=== PATIENT | female | born 1990 | race Caucasian/White ===

== ENCOUNTER → 2024-12-05 | Outpatient (CLI) | payer OTHER, SELFPAY | END | disposition home or self-care (01) | LOC: LAB 09:18 | PROVIDERS: PCP Family Medicine; Referring Provider Family Medicine; Visit Provider Family Medicine | DX: E03.9 Hypothyroidism, unspecified (principal) | CPT/HCPCS: 36415; 84439; 84443 ==

== ENCOUNTER 2025-01-08 06:43 | Outpatient (CLI) | payer OTHER, SELFPAY ==
--- OUTSIDE RECORDS SUMMARY | 2025-01-08 06:46 | XMS RPT_ITS | CCD ---
Author Organization [facility] [place] CliniSynd Care Team Providers Care Data Processing Operator Name Role Phone DELCIAPPO, ALIVIA I Unavailable Unavailable DELCIAPPO, ALIVIA I Unavailable Unavailable NO REFERRING DR Unavailable Unavailable KASSANDRA COATES JR Unavailable Unavailable KASSANDRA COATES JR Unavailable Unavailable DELCIAPPO, ALIVIA I Unavailable Unavailable DELCIAPPO, ALIVIA I Unavailable Unavailable DELCIAPPO, ALIVIA I Unavailable Unavailable NO REFERRING DR Unavailable Unavailable IMCA Unavailable Unavailable IMCA Unavailable Unavailable NO REFERRING Unavailable Unavailable CLAUS STEWART Unavailable Unavailable CHUY MARCIAL Unavailable Unavailable IMCA Unavailable Unavailable NICOL ROSE L Unavailable Unavailable ALF ROSEFER L Unavailable Unavailable DEL CIAPPO, ALIVIA L (NM) Unavailable Unavail able DEL CIAPPO, ALIVIA L (NM) Unavailable Unavail able DEL CIAPHUCO, ALIVIA L (NM) Unavailable Unavail able KASSANDRA COATES JR Unavailable Unavailable KASSANDRA COATES JR W Unavailable Unavailable DEL CIAPPO, ALIVIA L (NM) Unavailable Unavail able DEL CIAPPO, ALIVIA L (NM) Unavailable Unavail able CLAUS STEWART Unavailable Unavailable JANAY GARCIA Unavailable Unavailable Loewit TECHNICAL ACCOUNT REPRESENTATIVE-GRAIN THRESHER, [place] Unavailable Unavailabl e Benjy TECHNICAL ACCOUNT REPRESENTATIVE-CNM, Alice Unavailable Unava ilable Unknown, Referring Provider Unavailable Unav ailable Delia Harrington PA-C Primary Care Provider Delia Harrington PA-C Primary Care Provider Delia Harrington PA-C Primary Care Provider [phone] DELIA HARRINGTON Primary Care Unavailable DELIA HARRINGTON Primary Care Unavailable Jorge Angulo Referring Unavailable Jorge Angulo Attending Unavailable Jorge Angulo Primary Care Unavailable RILEY COBIAN Admitting Unavailable RILEY COBIAN Attending Unavailable RILEY COBIAN Primary Care Unavailable Jorge Angulo Primary Care Unavailable Jorge Angulo Referring Unavailable Jorge Angulo Attending Unavailable Jorge Angulo Primary Care Unavailable Assessment, Health Risk Referring Unavaila ble Assessment, Health Risk Attending Unavaila ble Medications Current Medications Medication Drug Class(es) Dates Sig (Normalized) Sig (Original) Ethinyl Estradiol / Levonorgestrel (7 sources) Progestin, Estrogen, Progestin-containi ng Intrauterine Device Start: 11-25-2023 take 1 tablet by mouth once daily levonorgestrel-ethi nyl estradiol (LEVORA-28) 0.15-0.03 mg per tab Indications: Surveillance for control, oral contraceptives Take 1 tablet by mouth once daily. 84 tablet 5 11/25/2023 Active Start: 11-05-2022 End: 11-25-2023 take 1 tablet by mouth once daily levonorgestrel-ethinyl estradiol (LEVORA-28) 0.15-0.03 mg per tab Indications: Surveillance for control, oral contraceptives Take 1 tablet by mouth once daily. 84 tablet 5 11/05/2022 11/25/2023 Discontinued Start: 11-05-2022 take 1 tablet by rigoberto th once daily levonorgestrel-ethinyl estradiol (LEVORA-28) 0.15-0.03 mg per tab Indications: Surveillance for control, oral contraceptives Take 1 tablet by mouth once daily. 84 tablet 5 11/05/2022 Active Start: 10-26-2022 End: 11-05-2022 take 1 tablet by mouth once daily levonorgestrel-ethinyl estradiol (LEVORA-28) 0.15-0.03 mg per tab Indications: Surveillance for control, oral contraceptives Take 1 tablet by mouth once daily. 84 tablet 0 10/26/2022 11/05/2022 Discontinued Start: 10-26-2022 take 1 tablet by rigoberto th once daily levonorgestrel-ethinyl estradiol (LEVORA-28) 0.15-0.03 mg per tab Indications: Surveillance for control, oral contraceptives Take 1 tablet by mouth once daily. 84 tablet 0 10/26/2022 Active Start: 10-30-2021 take 1 tablet by rigoberto th once daily levonorgestrel-ethinyl estradiol (LEVORA-28) 0.15-0.03 mg per tab Indications: Surveillance for control, oral contraceptives Take 1 tablet by mouth once daily. 84 tablet 3 10/30/2021 Active Comment on above: Take 1 tablet by rigoberto th once daily. levothyroxine sodium 0.05 mg oral tablet (6 sources) l-Thyroxine Start: 2 take 1 tablet by mouth once daily levothyroxine (SYNTHROID) 50 mcg tablet Indications: Acquired hypothyroidism Take 1 tablet by mouth once daily 90 tablet 1 02/16/2022 Active Start: 06-10-2021 take 1 tablet by rigoberto th once daily levothyroxine (SYNTHROID) 50 mcg tablet Indications: Acquired hypothyroidism Take 1 tablet by mouth once daily. 90 tablet 3 06/10/2021 Active Start: 01-25-2020 take 1 tablet by rigoberto th once daily Levothyroxine Sodium 50 MCG Oral Tablet TAKE 1 TABLET DAILY DIRECTED. Quantity: 90 Refills: 3 Benjy Alice SOTO Start : 25-Jan-2020 Active Comment on above: Take 1 tablet by rigoberto th once daily. Take 1 tablet by rigoberto th once daily Norethindrone (2 sources) Start: 07-29-2020 End: 10-30-2021 STEFFANIE 0.35 mg tablet Start: 06-05-2019 End: 06-27-2021 take 1 tablet by mouth once daily Steffanie 0.35 MG Oral Tablet TAKE 1 TABLET DAILY. Quantity: 3 Refills: 3 Fawadcatherine Aura DEAN Start : 05-Jun-2019 End : 26-Jun-2021 Active 28 Tablet Pack VIT 91/IRON/FOLIC/D CAMARA ( + DHA ORAL) (4 sources) End: 11-05-2022 VIT 91/IRON/FOLIC/D CAMARA ( + DHA ORAL) Take by mouth. 0 11/05/2022 Discontinued VIT 91/ IRON/FOLIC/DHA ( + DHA ORAL) Take by mouth. 0 Active Comment on above: Take by mouth. Completed/Discontinued Medications Medication Drug Class(es) Dates Sig (Normalized) Sig (Original) cholecalciferol 0.025 mg oral capsule (1 source) Vitamin D Vitamin D (Cholecalciferol) 25 MCG (1000 UT) Oral Capsule Refills: 0 Active Pre-James Formula Oral Tablet (1 source) Pre- Formul a Oral Tablet Refills: 0 Active Problems Active Problems Problem Classification Problem Date Documented Date Episodic/Chronic Contraceptive and procreative management (6 sources) Patient encounter status; Translations: [Unspecified contraceptive management] Onset: 07-27-2017 Resolved: 02-15-2018 Episodic Disorders of lipid metabolism (2 sources) Hyperlipidemia, unspecified; Translations: [Hyperlipidemia, unspecified] Onset: 12-07-2024 Chronic Menstrual disorders (7 sources) Secondary amenorrhea; Translations: [Amenorrhea, unspecified] Onset: 01-25-2017 Chronic Normal and/or delivery (2 sources) Encounter for full-term uncomplicated delivery; Translations: [ finding] Onset: 09-01-2017 Episodic Other complications of (1 source) Anemia complicating , third trimester; Translations: [Anemia complicating , third trimester] Onset: 07-26-2017 Chronic Other screening for suspected conditions (not mental disorders or infectious disease) (2 sources) Cancer cervix screening status; Translations: [Screening for malignant neoplasms of cervix] Episodic Thyroid disorders (11 sources) Hypothyroidism, unspecified; Translations: [Hypothyroidism] Onset: 01-27-2017 02-10-2017 Chronic Unclassified (1 source) Weeks of gestation of not specified; Translations: [WEEKS GESTATION PREGNANC] Onset: 01-27-2017 Unclassified (1 source) Unknown / UNK(Unknown) Onset: 09-04-2017 Past or Other Problems Problem Classification Problem Date Documented Date Episodic/Chronic Hypertension complicating ; childbirth and the puerperium (1 source) -induced hypertension; Translations: [Gestational [-induced] hypertension without significant proteinuria, unspecified trimester] Onset: 09-01-2017 Resolved: 11-05-2020 11-05-2020 Episodic Other complications of (5 sources) Endocrine, nutritional and metabolic diseases complicating , first trimester; Translations: [Endocrine, nutritional and metabolic diseases complicating , third trimester] Onset: 01-27-2017 Episodic Other complications of (1 source) RhD negative; Translations: [Other specified related conditions, unspecified trimester] Onset: 02-10-2017 Resolved: 09-04-2017 09-04-2017 Episodic Other complications of (1 source) Hypothyroidism in ; Translations: [Endocrine, nutritional and metabolic diseases complicating , unspecified trimester] Onset: 08-24-2017 Resolved: 02-15-2018 02-15-2018 Episodic Unclassified (1 source) Other specified health status; Translations: [OTHER SPECIFIED HEALTH S] Onset: 01-27-2017 Episodic Unclassified (1 source) Supervision of other high risk pregnancies, unspecified trimester Onset: 06-22-2017 NEGATED: Highlighted row has not occurred!Residual codes; unclassified (3 sources) Disease Episodic Results Test Name Value Interpretation Reference Range Facility THIN PREP (Anant) PAP WITH HP V REFLEXon 12-14-2024 THIN PREP (Mullen) PAP WITH HPV REFLEX Normal [facility] Comment on above: Result Comment: _THI N PREP (Adult) PAP w HPV REFLEX_ Performed By: #### 2 [id number] #### [facility],[address] [place] [id number] CBC, Employeeon 12-05-2024 Absolute Lymph 1.68 X10 3/uL Normal 0.83-4.51 [facility] Comment on above: Performed By: #### L 100.0200, L500.2900, L400.0100 #### [facility] [address] [place], [address] Absolute Neut 2.9 X10 3/uL Normal 2.0-7.7 [facility] Comment on above: Performed By: #### L 100.0200, L500.2900, L400.0100 #### [facility] [address] [place], [address] Basophils/100 WBC (Bld) 1.3 % High 0-1 [facility] Comment on above: Performed By: #### L 100.0200, L500.2900, L400.0100 #### [facility] [address] [place], [address] Eosinophils/100 WBC (Bld) 2.5 % Normal 0-5 [facility] Comment on above: Performed By: #### L 100.0200, L500.2900, L400.0100 #### [facility] [address] [place], [address] Erythrocyte distribution width (RBC) [Ratio] 11.9 % Normal 11.6-14.6 [facility] Comment on above: Performed By: #### L 100.0200, L500.2900, L400.0100 #### [facility] [address] [place], [address] Hematocrit (Bld) [Volume fraction] 42.3 % Normal 37-47 [facility] Comment on above: Performed By: #### L 100.0200, L500.2900, L400.0100 #### [facility] [address] [place], [address] Hemoglobin (Bld) [Mass/Vol] 14.2 g/dL Normal 12.0-15.0 [facility] Comment on above: Performed By: #### L 100.0200, L500.2900, L400.0100 #### [facility] [address] [place], [address] Lymphocytes/100 WBC (Bld) 32.1 % Normal 19-41 [facility] Comment on above: Performed By: #### L 100.0200, L500.2900, L400.0100 #### [facility] [address] [place], [address] MCH (RBC) [Entitic mass] 31.4 pg Normal 27.0-32.0 [facility] Comment on above: Performed By: #### L 100.0200, L500.2900, L400.0100 #### [facility] [address] [place], [address] MCHC (RBC) [Mass/Vol] 33.6 g/dL Normal 32-36 [facility] Comment on above: Performed By: #### L 100.0200, L500.2900, L400.0100 #### [facility] [address] [place], [address] MCV (RBC) [Entitic vol] 93.6 fL Normal 81-99 [facility] Comment on above: Performed By: #### L 100.0200, L500.2900, L400.0100 #### [facility] [address] [place], [address] Monocytes/100 WBC (Bld) 8.2 % Normal 0-10 [facility] Comment on above: Performed By: #### L 100.0200, L500.2900, L400.0100 #### [facility] [address] [place], [address] Neutrophils/100 WBC (Bld) 55.7 % Normal 47-70 [facility] Comment on above: Performed By: #### L 100.0200, L500.2900, L400.0100 #### [facility] [address] [place], [address] NRBC # 0.00 10 3/uL Normal 0-5 [facility] Comment on above: Performed By: #### L 100.0200, L500.2900, L400.0100 #### [facility] [address] [place], [address] Nucleated RBC (Bld) [#/Vol] 0 10*3/uL Normal 0-5 [facility] Comment on above: Performed By: #### L 100.0200, L500.2900, L400.0100 #### [facility] [address] [place], [address] Platelet mean volume (Bld) [Entitic vol] 9.7 fL Normal 6.2-12.0 [facility] Comment on above: Performed By: #### L 100.0200, L500.2900, L400.0100 #### [facility] [address] [place], [address] Platelets (Bld) [#/Vol] 229 10*3/uL Normal 150-450 [facility] Comment on above: Performed By: #### L 100.0200, L500.2900, L400.0100 #### [facility] [address] [place], [address] RBC (Bld) [#/Vol] 4.52 10*6/uL Normal 4.2-5.4 [facility] Comment on above: Performed By: #### L 100.0200, L500.2900, L400.0100 #### [facility] [address] [place], [address] RDW SD 41.0 fl Normal 35.1-43.9 [facility] Comment on above: Performed By: #### L 100.0200, L500.2900, L400.0100 #### [facility] [address] [place], [address] WBC (Bld) [#/Vol] 5.2 10*3/uL Normal 4.4-11.0 [facility] Comment on above: Performed By: #### L 100.0200, L500.2900, L400.0100 #### [facility] [address] [place], [address] Employee Profileon Cholesterol in LDL [Mass/Vol] 174 mg/dL High 0-130 [facility] Comment on above: Performed By: #### L 100.0200, L500.2900, L400.0100 #### [facility] [address] [place], [address] T4 Free Directon 12-05-2024 T4 FREE DIRECT 1.20 ng/dL Normal 0.76-1.46 [facility] Comment on above: Order Comment: Order Date: 12/04/24 Order Info: [id number] - LIPID Order Info: [id number] - TSH Order Info: [id number] - T4F Performed By: #### L 501.9520, L506.0400 #### [facility] [address] [place], [address] Thyroid Stim Hormone (TSH)on 12-05-2024 TSH 1.970 uIU/mL Normal 0.300-4.200 [facility] Comment on above: Order Comment: Order Date: 12/04/24 Order Info: [id number] - LIPID Order Info: [id number] - TSH Order Info: [id number] - T4F Performed By: #### L 501.9520, L506.0400 #### [facility] [address] [place], [address] Urinalysis, Employeeon 12-05 BILIRUBIN URINE Negative Normal Negative [facility] Comment on above: Order Comment: Urine , Random Performed By: #### L 100.0200, L500.2900, L400.0100 #### [facility] [address] [place], [address] Clarity (U) Clear Normal Clear [facility] Comment on above: Order Comment: Urine , Random Performed By: #### L 100.0200, L500.2900, L400.0100 #### [facility] [address] [place], [address] Color (U) Straw Normal Yellow [facility] Comment on above: Order Comment: Urine , Random Performed By: #### L 100.0200, L500.2900, L400.0100 #### [facility] [address] [place], [address] GLUCOSE, UR Normal Normal Normal [facility] Comment on above: Order Comment: Urine , Random Performed By: #### L 100.0200, L500.2900, L400.0100 #### [facility] [address] [place], [address] KETONE UR Negative Normal Negative [facility] Comment on above: Order Comment: Urine , Random Performed By: #### L 100.0200, L500.2900, L400.0100 #### [facility] [address] [place], [address] LEUK ESTERASE Negative Normal Negative [facility] Comment on above: Order Comment: Urine , Random Performed By: #### L 100.0200, L500.2900, L400.0100 #### [facility] [address] [place], [address] Nitrite Ql (U) Negative Normal Negative [facility] Comment on above: Order Comment: Urine , Random Performed By: #### L 100.0200, L500.2900, L400.0100 #### [facility] [address] [place], [address] OCCULT BLOOD-UR Negative Normal Negative [facility] Comment on above: Order Comment: Urine , Random Performed By: #### L 100.0200, L500.2900, L400.0100 #### [facility] [address] [place], [address] pH UR 7.0 Normal 5.0 - 8.0 [facility] Comment on above: Order Comment: Urine , Random Performed By: #### L 100.0200, L500.2900, L400.0100 #### [facility] [address] [place], [address] PROT DIPSTX Negative Normal Negative [facility] Comment on above: Order Comment: Urine , Random Performed By: #### L 100.0200, L500.2900, L400.0100 #### [facility] [address] [place], [address] SP.GR. DIPSTX 1.005 Normal 1.002-1.030 [facility] Comment on above: Order Comment: Urine , Random Performed By: #### L 100.0200, L500.2900, L400.0100 #### [facility] [address] [place], [address] UROBILI Normal Normal Normal [facility] Comment on above: Order Comment: Urine , Random Performed By: #### L 100.0200, L500.2900, L400.0100 #### [facility] [address] [place], [address] T4 Free SerPl-mCncon 024 Free T4 [Mass/Vol] 1.3 ng/dL Normal 0.9-1.7 [facility] Comment on above: Order Comment: Speci men Type: BLOOD SPECIMEN Ordering Facility: [facility] Address: [address] [place] [address] Performed By: #### 3 024-7, 3016-3 #### [facility] CLIA [id number] [address] [place] [address] [place] TSH SerPl-aCncon 05-28-2024 TSH Qn 2.010 m[IU]/L Normal 0.270-4.200 [facility] Comment on above: Order Comment: Speci men Type: BLOOD SPECIMEN Ordering Facility: [facility] Address: [address] [place] [address] Result Comment: If t he patient is , TSH reference range varies by gestational period: First Trimester (weeks 9-12): 0.180-2.990 mIU/L Second Trimester: 0.110-3.980 mIU/L Third Trimester: 0.480-4.710 mIU/L Gregg Martinez et al. A Practical Approach for the Verifications and Determination of Site- and Trimester-Specific Reference Intervals for Thyroid Function tests in . Thyroid, 2019:29:3:412-420. Juanjo Rodríguez, et al. 2017 Guidelines of the [place] Thyroid Association for the Diagnosis and Management of Thyroid Disease during and the . Thyroid, 2017:27:3:315-389. Performed By: #### 3 024-7, 3016-3 #### [facility] CLIA [id number] [address] [place] [address] [place] SCALE MECHANIC - Office Visiton SCALE MECHANIC - Office Visit Diagnoses/Problems Assessed Hypothyroidism, unspecified type (244.9) (E03.9) Screening for cervical cancer (V76.2) (Z12.4) Contraception management (V25.9) (Z30.9) Well woman exam with routine gynecological exam (V72.31) (Z01.419) Orders Renew: Steffanie 0.35 MG Oral Tablet; TAKE 1 TABLET DAILY Continue: Levothyroxine Sodium 50 MCG Oral Tablet; TAKE 1 TABLET DAILY DIRECTED TSH WITH REFLEX TO FREE T4 IF ABNORMAL; Status:Active; Requested for:25Jul2020; PAP PIZZA MAKER, Cytology; Status:In Progress - Specimen/Data Collected,Retrospective By Protocol Authorization; Done: 25Jul2020 Last Menstrual Period (LMP): : 06/17/2020 PAP - Site : CERVICAL Cytology Order : ThinPrep PAP, Screening, HPV All Interp - Include Genotyping Continue: Pre- Formula Oral Tablet Patient Discussion/Summary Thanks for coming to see me today- I enjoyed our visit! Please feel free to contact me anytime through the patient portal or by calling the office at [phone]. ASSESSMENT: Shania is a very pleasant patient who presents for well woman exam. She is doing well. PLAN: 1. Exam as charted. 2. PAP and HPV 3. Noris refilled x 12 months. 4. TSH with reflux T4. 5. Follow-up annually for well woman exam; sooner if needed. Instructions to patient: Healthy diet with high fiber. Multivitamins AND calcium. Regular exercise for 30 to 45 min., 5 to 7 days a week. Encouraged self breast exams. We will call with any abnormal lab results. These results will also be available on the patient portal. Canones refilled. Follow-up annually for well woman exam; sooner if needed. Chief Complaint Patient here for annual exam and PAP. No concerns at this time. Aoc Director Combat Plans Officer Declined Nereida Garcia CMA History of Present IllnessCC: Here for well woman exam. HPI: presents for annual well woman exam. She has the following concerns; none. PIZZA MAKER HISTORY: Menstrual cycles are infrequent while lactating. Only had one cycle, last month, since giving 15 months ago. Declines STD testing PAP history- No history of abnormal PAP testing. Next PAP due today. Health Maintenance: Diet and exercise- BMI 20. She follows with a PCP. She feels safe at home. Medical history- per list, reviewed with patient Surgical history- per list, reviewed with patient Family history- No family history of breast, ovarian, or uterine cancer. No family history of colon cancer or osteoporosis. Social History: Denies smoking, drug or alcohol abuse. Reviewed current allergies and medication list. Review of Systems Constitutional: no fever and no chills. Cardiovascular: no chest pain. Respiratory: no shortness of breath. Gastrointestinal: no nausea, no abdominal pain and no constipation Genitourinary: no dysuria, no urinary incontinence, no vaginal dryness, no pelvic pain and no vaginal discharge. Neurological: no headache. Psychiatric: no anxiety and no depression. Active Problems Problems Contraception management (V25.9) (Z30.9) Hypothyroidism, unspecified type (244.9) (E03.9) Normal course (V24.2) (Z39.2) Surgical History Problems History of Tonsillectomy with adenoidectomy Family History Mother Family history of hypertension (V17.49) (Z82.49) Social History Problems Employed Exercises regularly Feels safe at home Never a smoker No illicit drug use Occasional alcohol use Sexually active Unemployed (V62.0) (Z56.0) Allergies Medication No Known Drug Allergies Recorded By: Leanna Nevarez; 05/31/2019 8:21:08 AM Current Meds Medication NameInstruction Steffanie 0.35 MG Oral TabletTAKE 1 TABLET DAILY. Levothyroxine Sodium 50 MCG Oral TabletTAKE 1 TABLET DAILY DIRECTED. Pre-James Formula Oral Tablet Vitamin D (Cholecalciferol) 25 MCG (1000 UT) Oral Capsule Vitals Vital Signs Recorded: 25Jul2020 02:11PM [id number] Height5 ft 5 in [id number] lb BMI [id number] BSA Calculated1.6 [id number] Physical Exam Constitutional: Alert and in no acute distress. Well developed, well nourished. Neck: No neck asymmetry. Supple. Thyroid not enlarged and there were no palpable thyroid nodules. Cardiovascular: Heart rate and rhythm were normal, normal S1 and S2, no gallops, and no murmurs. Pulmonary: No respiratory distress. Clear bilateral breath sounds. Chest: Breasts: Normal appearance, no nipple discharge and no skin changes. Palpation of breasts and axillae: No palpable mass and no axillary lymphadenopathy. Abdomen: Soft nontender; no abdominal mass palpated. Normal bowel sounds. No organomegaly. Genitourinary: - External genitalia: Normal. - Palpation of lymph nodes in groin: No inguinal lymphadenopathy. - Bartholin's Urethral and Skenes Glands: Normal. - Urethra: Normal. -Bladder: Normal on palpation. - Vagina: Normal. - Cervix: Normal. - Uterus: Normal. Right Adnexa/parametria: Normal. Left Adnexa/parametria: Normal. - Perianal Area: Normal. Skin: Normal skin color and pigmentation, normal skin turgor, and no rash Psychiatric: Alert and oriented x 3. Affect normal to patient baseline. Mood: Appropriate. Signatures Electronically signed by : DIANNE Kurtz; Jul 25 2020 2:56PM EST (Author) Normal Screen [facility] Date of Procedure: 07/25/2020 Pathologist: [facility], Cytology Date Reported: 08/07/2020 Date Received: 07/28/2020 Submitting Physician: AURA SPAIN CNP FINAL CYTOLOGICAL INTERPRETATION A. THINPREP PAP Cervical / Endocervical: Specimen adequacy: SATISFACTORY FOR EVALUATION. Quality Indicator: Endocervical/transformation zone component is present. General Categorization: NEGATIVE FOR INTRAEPITHELIAL LESION OR MALIGNANCY. HIGH RISK HPV TEST RESULT: HPV GENOTYPE 16 NEGATIVE HPV GENOTYPE 18 NEGATIVE HPV GENOTYPE OTHER NEGATIVE Reference Range: Negative Slide(s) initially screened by a Elementary Math Tutor at [facility], [address] [place] [id number] Testing for high-risk (HR) type of human papilloma virus (HPV) is performed by the Jacklyn junior HPV Test. The junior HPV Test is a qualitative polymerase chain reaction that amplifies DNA of HPV16, HPV18 and 12 other high-risk HPV types (31, 33, 35, 39, 45, 51, 52, 56, 58, 59, 66, and 68) associated with cervical cancer and its precursor lesions. A positive result indicates the presence of HPV DNA due to one or more of the 14 genotypes: 16, 18, 31, 33, 35, 39, 45, 51, 52, 56, 58, 59, 66, and 68. Negative results indicate HPV DNA concentrations are undetectable or below the pre-set threshold for detection. False negative results may be associated with unoptimized sampling. A negative HR HPV result does not exclude the possibility of future cytologic HSIL or underlying CIN2-3 or cancer. This test is approved for cervical specimens by the US Food and Drug Administration. Results of this test should be interpreted in conjunction with the patient?s Pap test results. Please refer to ASCCP current guidelines for the use of HPV DNA testing, result interpretation, and patient management. The performance of this test was verified by the [facility] at [facility]. The lab is certified under the Clinical Laboratory Amendments of 1988 (CLIA 88) as qualified to perform high complexity clinical laboratory testing. Electronically Signed Out By [facility], Cytology//LSM By the signature on this report, the individual or group listed as making the Final Interpretation/Diagnosis certifies that they have reviewed this case. Educational Note: Cervical cytology is a screening procedure primarily for squamous cancers and precursors and has associated false-negative and false-positive results as evidenced by published data. Your patient?s test should be interpreted in this context, together with patient?s history and clinical findings. Regular sampling and follow-up of unexplained clinical signs and symptoms are recommended to minimize false negative results. Clinical History Date of Last Menstrual Period: 06/17/2020 Other Clinical Conditions: HPV Test for All Interpretations - Include HPV Genotype Clinical Diagnosis History: Screening for cervical cancer - (Z12.4) Source of Specimen A: THINPREP PAP Cervical / Endocervical [facility] Department of Pathology [address] [place] [address] [facility] TSH WITH REFLEX TO FREE T4 I F ABNORMALon 07-25-2020 TSH Qn 3.84 m[IU]/L Normal 0.44 - 3.98 [facility] Comment on above: Result Comment: TSH testing is performed using different testing methodology at [facility] than at other [facility]. Direct result comparisons should only be made within the same method. Performed By: #### T HYDS #### [facility] [address] [place] [address] CBCon 04-10-2019 Erythrocyte distribution width (RBC) [Ratio] 12.1 % Normal 11.4-16.0 [facility] Hematocrit (Bld) [Volume fraction] 41.9 % Normal 34.7-44.9 [facility] Hemoglobin (Bld) [Mass/Vol] 14.6 g/dL Normal 11.3-15.6 [facility] MCH (RBC) [Entitic mass] 34.1 pg High 26.5-33.0 [facility] MCHC (RBC) [Mass/Vol] 34.8 g/dL Normal 32.6-36.0 [facility] MCV (RBC) [Entitic vol] 98.1 fL Normal 80.0-100.0 [facility] Mean Plt Vol 9.1 fL Normal 7.2-10.3 [facility] Platelets (Bld) [#/Vol] 192 10*3/uL Normal 144-400 [facility] RBC (Bld) [#/Vol] 4.27 x10E12/L Normal 3.78-5.45 [facility] WBC (Bld) [#/Vol] 9.6 10*3/uL Normal 3.5-11.5 [facility] Obstetric Note-HOP/Admit wit h History and Physicalon 04-10-2019 Obstetric Note-HOP/Admit with History and Physical Reasons for Admission: Obstetric Visit: Visit TypeHOP/Admit with History and Physical REASON FOR ADMISSION: Reason for [id number] y/o @ 41.6 weeks gestation admitted to [facility] for post dates induction of labor. Having occasional contractions, denies LOF, VB, endorses good movement. VE 2/70/-3 RISK FOR HEMORRHAGE: Risk Factors for Hemorrhage: none of these exist OB Evaluation: OBSTETRICS STATUS: : 2 (1) Para: 1 (1) : 0 (1) Livin (1) : 0 (1) Full Term: 1 (1) Dating: Dating: [id number](1) Weeks Gestation (weeks . days)41.6 Weeks . Days(1) LMP [id number](1) Working Estimated Date of Delivery: Working SKYLAR from [facility] Documentation: Working [id number](1) History of Present Illness: HPI COMPLAINTS: Chief Complaintinduction of labor Painnone Vaginal Bleedingnone Vaginal Dischargenone Fevernone Movementsnormal Weight Gainnormal Past Medical, Surgical and Family History: Past Medical History: Past Medical History: noncontributory Endocrine/Metabolic: HYPOTHYROIDISM(1) Additional Past Medical History: history syncope(1) Past Surgical History: Eye/ENT: ADENOIDECTOMY(1) FAMILY HISTORY: Family History: positive (1) Conditions: hypertension, hyperlipidemia(1) Family Member with Hypertension: mother(1) Family Member with Hyperlipidemia: father, mother(1) Social History: MATERNAL GENERAL INFORMATION: Source of Informationpatient(1) Arrived Frommarsing(1) Mode of Arrivalambulatory(1) Patient Belongingsclothing/shoes; electronics; jewelry; ring,earrings; suitcase/bag; glasses; left contact; right contact(1) LIVING ENVIRONMENT: Lives Withspouse; dependent child(ab)(2) Living Arrangementshouse(2) ACTIVITY/EXERCISE/SELF CARE: Equipment Currently Used at [employer] (1) TRAVEL/EXPOSURE: Have you Traveled Recently?no (1) Have you been Exposed to any of the Following?mosquitoes(1) PET HISTORY: Pet Historynone(2) Substance Use: SUBSTANCE USE: Smoking Statusnever smoker(1) Caffeine Use Statusdoes not use caffeine (1) Alcohol Use Statusalcohol never used (1) Street Drug/Inhalant/Medication Use Statusstreet drug/inhalants/medication never used (1) Exposure to Second Hand Smokenone (1) ALLERGIES: Allergies: No Known Allergies: Active HEALTH CALIBRATION TECHNICIAN: Charted Data: EventVaccineAction Date/TimeComment [id number] 11:03 Product Given: BOOSTRIX ([employer]) [id number] 11:01 Product Given: Rho(D)Full (Ortho-Clinical Diagnostics) OUTPATIENT MEDICATION PROFILE: * Patient Currently Takes Medications as of 02-Apr-2019 11:41 documented in Structured Notes MedicationInstructionsStatusSta rt Date levothyroxine 50 mcg (0.05 mg) oral tablet1 tab(s) orally once a day Active 13-Mar-2019 levothyroxine 50 mcg (0.05 mg) oral tablet1 tab(s) orally once a dayActive Multivitamins oral tabletActive magnesiumActive REVIEW OF SYSTEMS: General: NEGATIVE: chills, fever Breast: NEGATIVE: tenderness Respiratory: NEGATIVE: cough, dyspnea, wheezing Cardiovascular: NEGATIVE: chest pain Gastrointestinal: NEGATIVE: abdominal pain, constipation, diarrhea, nausea, vomiting Genitourinary: NEGATIVE: dysuria, urinary frequency, urinary hesitance, urinary incontinence Gynecological: NEGATIVE: vaginal discharge, vaginal pruritus Neuro: NEGATIVE: dizziness, headache, numbness, weakness Psych: NEGATIVE: depression VITAL SIGNS: 2. Vital Signs: 10-Apr-2019 08:20 Temp (degrees F) (degrees F)98 Temp (degrees C) (degrees C)36.6 Temperature Site Sitetemporal Heart Rate (beats/min) beats/min86 BP Systolic (mm Hg) [id number] BP Diastolic (mm Hg) Diastolic (mm Hg)91 Respiration (breaths/min) Respiration (breaths/min)16 Height (ft) Height (ft)5 Height (remainder in inches) Height (in)5 Height (cm) Height (cm)165.1 Weight (lbs) Weight (lbs)155 Weight (kg) Weight (kg)70.3 Weight Methodstanding scale BSA (m2)1.8 BMI (kg/m2) BMI (kg/m2)25.7 Physical Exam: PHYSICAL EXAMINATION: General Appearance CommentsWell developed, well nourished and no acute distress. Skin CommentsSkin warm and dry, no rash. Neck and Thyroid CommentsNeck supple, no thyromegaly, no masses. Breast and Axilla CommentsAppropriate for Respiratory CommentsNormal respiratory effort, clear to auscultation. Cardiovascular CommentsRegular sinus rhythm, S1 normal, S2 normal. No murmur, rub or gallop. Gastrointestinal CommentsGravid abdomen, soft and non-tender. Musculoskeletal CommentsNormal gait and station. Joints and limbs grossly normal. Neurological CommentsOriented to person, place and time. Motor strength grossly normal. Psychiatric CommentsNormal mood and affect. Obstetric Exam: Obstetric: Shape of Abdomen: round Lie: longitudinal Presentation: cephalic Dilatation (cm): 2 Effacement %: 70% Station: -3 Frequency of Contractions: irregular Duration of Contractions: occ Cervix Position: posterior Consistency of Cervix: soft Ruiz Score: 5 Membranes Status: intact Estimated Weight: 8.5# Monitoring: NONSTRESS TEST: Non Stress Test - Parameters Assessedfetal heart rate, uterine activity FHR Variabilitymoderate FHR Patternacceleration Uterine Activity Assessmentoccasion contraction Non-StressTest Interpretationreactive Results: LABS AND MICRO: General Hematology: 30-Mar-2019 11:37, Complete Blood Count Hemoglobin: 14.1, [11.3 - 15.6 g/dL] Hematocrit: 41.3, [34.7 - 44.9 %] Infectious Diseases + Serology: 10-Aug-2018 14:01, Hep Bs Ag PN Hep B Surf Ag: [Nonreactiv], Nonreactive 10-Aug-2018 14:01, HIV Ag/Ab HIV Ag/Ab: [Nonreactiv], Nonreactive 10-Aug-2018 14:01, RPR Qual PN RPR: NON REAC, [NON REAC] General Microbiology: 02-Mar-2019 13:36, Strep B Molecular Source_: V/R Final Report_: Specimen negative for Group B Streptococcus by DNA amplification. General Blood Bank: 10-Aug-2018 14:01, Antibody Screen Antibody Screen : Neg 10-Aug-2018 14:01, Blood Type Blood Type : A NEG PROBLEM / ASSESSMENT PLAN: Problem 1: 28 y/o @ 41.6 weeks Problem 2: Cat I FHR tracing Problem 3: Induction of labor Assessment/Plan 3: Admit to [facility] with routine orders and labs Continuous monitoring Discussed IOL options including AROM, pitocin, and breast pump Patient would like to attempt to stimulate labor on her own using pump. Discussed trying this x 1 hour and then moving to pitocin, pt in agreement Dr. Campbell aware of admission and plan of care Reexamine as clinically indicated Anticipate Problem 4: hypothyroidism Assessment/Plan 4: Continue synthroid TSH Electronic Signatures: Alice Burleson (TECHNICAL ACCOUNT REPRESENTATIVE-CNM) (Signed 10-Apr-2019 08:56) Entered: Reasons for Admission, OB Evaluation, History of Present Illness, Past Medical, Surgical and Family History, Social History, Substance Use, Allergies, Immunizations, Outpatient Medication Profile, ROS, Physical Exam, Monitoring, Results, Assessment and Plan Authored: Reasons for Admission, OB Evaluation, History of Present Illness, Past Medical, Surgical and Family History, Social History, Substance Use, Allergies, Immunizations, Outpatient Medication Profile, ROS, Vital Signs, Physical Exam, Monitoring, Results, Assessment and Plan Last Updated: 10-Apr-2019 08:56 by Alice Burleson (TECHNICAL ACCOUNT REPRESENTATIVE-CNM) References: 1. Data Referenced From [facility] OB Patient Profile 04/10/2019 08:20 AM 2. Data Referenced From Historical Data, OBGYN/Bee Robber 09/28/2018 04:[address] [facility] Progress Note, Adult-Advance d Practice RNon 04-10-2019 Progress Note, Adult-sales account director SERVICE: ServiceAdvanced Practice Registered Nurse SUBJECTIVE/INTERVAL HISTORY: Subjective/Interval History Patient exam remains the same, proceed with pitocin. Pt in agreement. VITAL SIGNS: 2. Vital Signs: 10-Apr-2019 08:20 Temp (degrees F) (degrees F)98 Temp (degrees C) (degrees C)36.6 Temperature Site Sitetemporal Heart Rate (beats/min) beats/min86 BP Systolic (mm Hg) [id number] BP Diastolic (mm Hg) Diastolic (mm Hg)91 Respiration (breaths/min) Respiration (breaths/min)16 Height (ft) Height (ft)5 Height (remainder in inches) Height (in)5 Height (cm) Height (cm)165.1 Weight (lbs) Weight (lbs)155 Weight (kg) Weight (kg)70.3 Weight Methodstanding scale BSA (m2)1.8 BMI (kg/m2) BMI (kg/m2)25.7 [place] Scale Score(2) patient cooperative, oriented and tranquil Electronic Signatures: Alice Burleson (TECHNICAL ACCOUNT REPRESENTATIVE-CN) (Signed 10-Apr-2019 12:16) Entered: Service, Subjective/Interval History Authored: Service, Subjective/Interval History, Vital Signs Last Updated: 10-Apr-2019 12:16 by Alice Burleson (TECHNICAL ACCOUNT REPRESENTATIVE-CNM) [facility] pRPRon 04-10-2019 Reagvenu Mcnamara RPR Ql (S) NON REAC Normal NON REAC [facility] BUNon 03-30-2019 Urea nitrogen [Mass/Vol] 12 mg/dL Normal 8-26 [facility] CBCon 03-30-2019 Erythrocyte distribution width (RBC) [Ratio] 12.8 % Normal 11.4-16.0 [facility] Hematocrit (Bld) [Volume fraction] 41.3 % Normal 34.7-44.9 [facility] Hemoglobin (Bld) [Mass/Vol] 14.1 g/dL Normal 11.3-15.6 [facility] MCH (RBC) [Entitic mass] 33.8 pg High 26.5-33.0 [facility] MCHC (RBC) [Mass/Vol] 34.2 g/dL Normal 32.6-36.0 [facility] MCV (RBC) [Entitic vol] 98.8 fL Normal 80.0-100.0 [facility] Mean Plt Vol 9.2 fL Normal 7.2-10.3 [facility] Platelets (Bld) [#/Vol] 195 10*3/uL Normal 144-400 [facility] RBC (Bld) [#/Vol] 4.18 x10E12/L Normal 3.78-5.45 [facility] WBC (Bld) [#/Vol] 9.3 10*3/uL Normal 3.5-11.5 [facility] Creaton 03-30-2019 Creatinine [Mass/Vol] 0.71 mg/dL Normal 0.60-1.30 [facility] Comment on above: Result Comment: In toxic concentrations, N-acetyl p benzoquinone imine may potentially lead to erroneously low results for enzymatic creatinine. SGOTon 03-30-2019 AST [Catalytic activity/Vol] 26 U/L Normal 15-41 [facility] SGPTon 03-30-2019 ALT [Catalytic activity/Vol] 38 U/L Normal 14-63 [facility] U Crea Ranon 03-30-2019 Urine Creat Ran 23.3 mg/dL Normal [facility] U Pro Ranon 03-30-2019 U T Prot Ran <6 Normal [facility] U Prot/Creat Ranon 9 U Prot/Creat Ratio Ran N/A Normal [facility] Comment on above: Result Comment: Unable to calculate Urine Protein/Creatinine ratio due to low protein and/or creatinine concentration in urine. Uricon 03-30-2019 Urate [Mass/Vol] 4.9 mg/dL Normal 2.6-8.0 [facility] Comment on above: Result Comment: In toxic concentrations, N-acetyl p benzoquinone imine may potentially lead to erroneously low results for uric acid. Strep Grp B Molecon 03-02-20 19 Strep Grp B Molec SOURCE: V/R (Specime n negative for Group B Streptococcus by DNA amplification.) Normal [facility] TSHon 02-19-2019 TSH Qn 2.33 uIU/mL Normal 0.34-5.60 [facility] CBCon 12-08-2018 Erythrocyte distribution width (RBC) [Ratio] 13.3 % Normal 11.4-16.0 [facility] Hematocrit (Bld) [Volume fraction] 37.1 % Normal 34.7-44.9 [facility] Hemoglobin (Bld) [Mass/Vol] 12.6 g/dL Normal 11.3-15.6 [facility] MCH (RBC) [Entitic mass] 34.1 pg High 26.5-33.0 [facility] MCHC (RBC) [Mass/Vol] 34.0 g/dL Normal 32.6-36.0 [facility] MCV (RBC) [Entitic vol] 100.3 fL High 80.0-100.0 [facility] Mean Plt Vol 8.5 fL Normal 7.2-10.3 [facility] Platelets (Bld) [#/Vol] 212 10*3/uL Normal 144-400 [facility] RBC (Bld) [#/Vol] 3.70 x10E12/L Low 3.78-5.45 [facility] WBC (Bld) [#/Vol] 10.2 10*3/uL Normal 3.5-11.5 [facility] Gluc Scron 12-08-2018 Glucose [Mass/Vol] 117 mg/dL Normal <=140 [facility] TSHon 12-08-2018 TSH Qn 3.27 uIU/mL Normal 0.34-5.60 [facility] FIRST TRIMESTER SCREEN PLUSo n 09-16-2018 FIRST TRIMESTER SCREEN PLUS SEE BELOW Normal [facility] Comment on above: Result Comment: RESU LTS WILL BE SENT ON SEPARATE REPORT. Performed By: #### F TSPL #### [employer] [address] [address] [place], [place] [id number] [facility] Miscon 09-15-2018 Misc Please see scanned r esults from another Facility. Normal [facility] Auto Diffon 08-10-2018 Basophils (Bld) [#/Vol] 0.0 10*3/uL Normal 0.0-0.2 [facility] Basophils/100 WBC (Bld) 0.6 % Normal 0.0-2.4 [facility] Eosinophils (Bld) [#/Vol] 0.0 10*3/uL Normal 0.0-0.5 [facility] Eosinophils/100 WBC (Bld) 0.3 % Low 0.7-6.5 [facility] Lymphocytes (Bld) [#/Vol] 1.1 10*3/uL Normal 1.1-3.5 [facility] Lymphocytes/100 WBC (Bld) 14.2 % Low 17.0-44.0 [facility] Monocytes (Bld) [#/Vol] 0.5 10*3/uL Normal 0.3-1.0 [facility] Monocytes/100 WBC (Bld) 5.9 % Normal 5.3-12.5 [facility] Neutrophils (Bld) [#/Vol] 6.1 10*3/uL Normal 1.8-7.5 [facility] Neutrophils/100 WBC (Bld) 79.0 % High 41.0-73.8 [facility] C Urineon 08-10-2018 C Urine SOURCE: Urine (No gr owth Testing performed at [facility] Department of Laboratory Medicine [address] [place] [address]) Normal [facility] Chlam Amp RNAon 08-10-2018 Chlam Amp RNA Negative Normal Negative [facility] Comment on above: Result Comment: Hologic? Aptima Combo 2 Assay is an in vitro nucleic acid amplification test for the detection of ribosomal RNA from Chlamydia trachomatis (CT) and Neisseria gonorrhoeae (GC) to aid in the diagnosis of chlamydial and/or gonococcal urogenital disease. This assay is FDA-approved for testing on female endocervical swabs, vaginal swabs, ThinPrep liquid-based pap samples, male urine samples and urethral swabs. Performance characteristics for this assay on specific vge-BEQ-arxrhsij sample types (female urine) have been validated by [facility]. Performance has not been evaluated for patients less than 14 years of age. Results should be interpreted in conjunction with other clinical information. GC AMP RNAon 08-10-2018 GC Amp RNA Negative Normal Negative [facility] HIV Ag/Abon 08-10-2018 HIV Ag/Ab Nonreactive Normal Nonreactiv [facility] Prenatalon 08-10-2018 Erythrocyte distribution width (RBC) [Ratio] 12.5 % Normal 11.4-16.0 [facility] Hematocrit (Bld) [Volume fraction] 40.8 % Normal 34.7-44.9 [facility] Hemoglobin (Bld) [Mass/Vol] 13.5 g/dL Normal 11.3-15.6 [facility] MCH (RBC) [Entitic mass] 32.1 pg Normal 26.5-33.0 [facility] MCHC (RBC) [Mass/Vol] 33.1 g/dL Normal 32.6-36.0 [facility] MCV (RBC) [Entitic vol] 97.1 fL Normal 80.0-100.0 [facility] Mean Plt Vol 8.1 fL Normal 7.2-10.3 [facility] Platelets (Bld) [#/Vol] 228 10*3/uL Normal 144-400 [facility] RBC (Bld) [#/Vol] 4.20 x10E12/L Normal 3.78-5.45 [facility] WBC (Bld) [#/Vol] 7.8 10*3/uL Normal 3.5-11.5 [facility] RUMon 08-10-2018 Bilirubin [Mass/Vol] Negative Normal Negative [facility] Blood Negative Normal Negative [facility] Color (U) COLORLESS Normal Yellow [facility] Glucose [Mass/Vol] Negative Normal Negative [facility] Ketones Ql (U) Negative Normal Negative [facility] Leukocyte Monica Negative Normal Negative [facility] Nitrite Ql (U) Negative Normal Negative [facility] pH (U) 7.0 [pH] Normal 5.0 - 8.0 [facility] Protein [Mass/Vol] Negative Normal Negative [facility] Ur Appearance Clear Normal Clear [facility] Urine Spec [place] 1.003 Normal 1.001-1.03 [facility] Urobilinogen Qn (U) <2.0 Normal <2.0 [facility] Rubella IgG Prenatalon 08-10 Rubella IgG 26.4 IU/mL Normal [facility] Comment on above: Result Comment: Non-Immune < 10 IU/mL Equivocal 10 - <15 IU/mL Immune >=15 IU/mL TSHon 08-10-2018 TSH Qn 3.78 uIU/mL Normal 0.34-5.60 [facility] URINE CULTURE,BACTERIALon URINE CULTURE,BACTERIAL PATIENT: SHANIA BAKER [facility] [id number] : 88 AGE: SEX: F ORDERED BY: KATHY BRITO SOURCE: URINE COLLECTED: 08/10/18 14:01 ANTIBIOTICS AT [facility]ARRY.: RECEIVED : 08/10/18 22:26 SITE: [id number] R E S U L T S URINE CULTURE,BACTERIAL FINAL 08/11/18 17:33 NO GROWTH Normal [facility] Comment on above: Performed By: #### U [facility] #### [facility] [address] [place] [address] pRPRon 08-10-2018 Reagin Ab RPR Ql (S) NON REAC Normal NON REAC [facility] zHepatits B Surface Ag (Pren atal)on 08-10-2018 Hep B Surf Ag Nonreactive Normal Nonreactiv [facility] CNPNon 09-08-2017 CNPN Telephone (HL2EPP) SHANIA AGOSTO ([id number]) 1990 F CHTDate Time Provider Department09/08/17 ARMANDO WAGNER (MURIEL) HL2EPP During your visit today, we recorded the following information about you:Allergies As of Date: 09/08/2017(No Known Allergies)Date Reviewed: 09/04/2017Reviewed by: Maryann Garcia) MURIEL Cervantes - Fully AssessedReason for Visit: Breast Feeding [1541]Prescriptions as of 09/08/2017 Sig: DOCUSATE SODIUM 100 MG CAPSULE Take 2 capsules by mouth ric* IBUPROFEN 600 MG TABLET Take 1 tablet by mouth every * FE C ORAL Take by mouth. LEVOTHYROXINE 50 MCG TABLET Take 1 tablet by mouth once d* BREAST PUMP + DHA ORAL Take by mouth.Problem List As Of Date 09/08/2017 Noted Resolved Hypothyroidism [E03.9] INVALID FOR* Rh negative state in antepartum period [O09.899]INVALID FOR*09/04/2017 Contraceptive management [Z30.9] INVALID FOR* More... Hypothyroid in , antepartum [O99.280, *INVALID FOR* Gestational hypertension [O13.9] INVALID FOR* Status:Closed by ARMANDO WAGNER on 09/08/17 [facility] CNPN Telephone (HL2EPP) COCO SHANIA WATKINS ([id number]) 1990 F CHTDate Time Provider Department09/07/17 LENA ADAMS (RN) HL2EPP During your visit today, we recorded the following information about you:Lena Adams RN, RN 09/07/2017 2:51 PM SignedReturned Shania's call to Helpl[facility]. She tried pumping and got 2ounces, but breasts are still firm. TBML (discussed and described how to doover the phone): Therapeutic Breast Massage in . Try this laying onyour back prior to feeding or pumping. Continue using cold compresses x 20minutes after /pumping. Continue with hand expression prior tolatch. Continue with frequent feedings. 1:1 outpatient appointmentoffered. Shania states she [place] away from [place]. She will callback if needed or if wants an appointment.Allergies As of Date: 09/07/2017(No Known Allergies)Date Reviewed: 09/04/2017Reviewed by: Maryann (Rn) MURIEL Cervantes - Fully AssessedReason for Visit: Breast Feeding [1541]Prescriptions as of 09/07/2017 Sig: DOCUSATE SODIUM 100 MG CAPSULE Take 2 capsules by mouth ric* IBUPROFEN 600 MG TABLET Take 1 tablet by mouth every * FE C ORAL Take by mouth. LEVOTHYROXINE 50 MCG TABLET Take 1 tablet by mouth once d* BREAST PUMP + DHA ORAL Take by mouth.Problem List As Of Date 09/07/2017 Noted Resolved Hypothyroidism [E03.9] INVALID FOR* Rh negative state in antepartum period [O09.899]INVALID FOR*09/04/2017 Contraceptive management [Z30.9] INVALID FOR* More... Hypothyroid in , antepartum [O99.280, *INVALID FOR* Gestational hypertension [O13.9] INVALID FOR* Status:Closed by LENA ADAMS on 09/07/17 [facility] Telephone (HL2EPP) COCO NoelleAlexandraSHANIA ([id number]) 1990 F CHTDate Time Provider Department09/07/17 LENA ADAMS (RN) HL2EPP During your visit today, we recorded the following information about you:Lena Adams RN, RN 09/07/2017 10:52 AM SignedReturned Shania's call to [facility] for questionsregarding breast engorgement. She states she has some hard areas up towards herarmpit that she can't get to soften. We discussed massaging this area towardsthe baby while she is sucking at the breast. Also discussed pumping for comfortwith the same type of massage. Shania is already using cold compresses afterbreastfeeding. States she usually breastfeeds on one side per feeding.Encouraged her to offer the second side, and if the baby doesn't take it, andthe breast is too full/uncomfortable, she can pump for comfort just to softenthe breast. Hand expression also discussed. Follow-up later today.Allergies As of Date: 09/07/2017(No Known Allergies)Date Reviewed: 09/04/2017Reviewed by: Maryann MalloryRn) MURIEL Cervantes - Fully AssessedReason for Visit: Breast Feeding [1541]Prescriptions as of 09/07/2017 Sig: DOCUSATE SODIUM 100 MG CAPSULE Take 2 capsules by mouth ric* IBUPROFEN 600 MG TABLET Take 1 tablet by mouth every * FE C ORAL Take by mouth. LEVOTHYROXINE 50 MCG TABLET Take 1 tablet by mouth once d* BREAST PUMP + DHA ORAL Take by mouth.Problem List As Of Date 09/07/2017 Noted Resolved Hypothyroidism [E03.9] INVALID FOR* Rh negative state in antepartum period [O09.899]INVALID FOR*09/04/2017 Contraceptive management [Z30.9] INVALID FOR* More... Hypothyroid in , antepartum [O99.280, *INVALID FOR* Gestational hypertension [O13.9] INVALID FOR* Status:Closed by LENA ADAMS on 09/07/17 [facility] 09-06-2017 [facility] Telephone (HL2EPP) SHANIA AGOSTO ([id number]) 1990 F TDate Time Provider Department09/06/17 LENA ADAMS (MURIEL) HL2EPP During your visit today, we recorded the following information about you:Lena Adams RN, RN 09/06/2017 3:03 PM SignedLactation Discharge Follow-Up Phone CallSpoke with Shania regarding .(s) occur: every 1.5-3 hour(s)How many minutes is actively nursing at the breast per feedin-60minutesDoes mom hear infant swallowing: Yes, + signs of lactogenesis II today. +fullness, ANDquot;getting hard and tenderANDquot; + leakingMom pumps: NoInfant takes a supplement: NoInfant has adequate urine output per day: Yes, approximately 4-5 wet diapers inthe last 24 hoursInfant has adequate stools per day: Yes, approximately 4-5 stool(s) in the last24 hoursStool descriptor: dark green (discussed look for yellow seedy stools around day5) has seen/or will see their primary care provider within the next 2 days:Yes, saw [employer] today. States baby's weight was down, so is going backtomorrow for a weight check.Shania's additional comments: Mom has expressed concern(s) with: latch-ondifficulties and sore nipple (L). States baby is generally latching well, butsometimes ANDquot;slips down onto nippleANDquot; after the latch. Reviewed deepasymmetrical latch technique, and mom's hand placement. Reviewed nipple comfortmeasures.Recommendations : frequently per infant cues, 8-12 times per day.Encouraged support groups.Offered 1:1 outpatient consult: Stated she will call for one ifneeded.Call Services as needed.Reviewed engorgement prevention ANDamp; treatment measures.Allergies As of Date: 09/06/2017(No Known Allergies)Date Reviewed: 09/04/2017Reviewed by: Maryann (Muriel) MURIEL Cervantes - Fully AssessedReason for Visit: Breast Feeding [1541]Prescriptions as of 09/06/2017 Sig: DOCUSATE SODIUM 100 MG CAPSULE Take 2 capsules by mouth ric* IBUPROFEN 600 MG TABLET Take 1 tablet by mouth every * FE C ORAL Take by mouth. LEVOTHYROXINE 50 MCG TABLET Take 1 tablet by mouth once d* BREAST PUMP + DHA ORAL Take by mouth.Problem List As Of Date 09/06/2017 Noted Resolved Hypothyroidism [E03.9] INVALID FOR* Rh negative state in antepartum period [O09.899]INVALID FOR*09/04/2017 Contraceptive management [Z30.9] INVALID FOR* More... Hypothyroid in , antepartum [O99.280, *INVALID FOR* Gestational hypertension [O13.9] INVALID FOR* Status:Closed by LENA ADAMS on 09/06/17 [facility] ANES Anna 09-04-2017 ANES POST HNO ID: [id number] thor: Lyn MckeonServlade: AnesthesiologyAuthor Type: PhysicianType: Anesthesia PostOpFiled: 09/04/2017 1:14 PMNote Text:POST ANESTHESIA EVALUATION NOTESERVICE DATE: 09/04/2017SERVICE TIME: 9:15 AMDOB: 1990Vitals: 09/03/1821Temp: 36.6 ?C (97.9 ?F) 36.7 ?C (98.1 ?F) 36.4 ?C (97.5 ?F) 36.8 ?C (98.2?F) 09/03/1821P: 131/74 131/80 127/72 124/77 09/03/1821Pulse: 70 64 (!) 57 68 09/03/1821Resp: There were no vitals filed for this visit.Validated Vital Signs: YesPOST ANES STATUS: No apparent anesthetic complications. The patient isappropriately hydrated with stable respiratory and cardiovascular status.Patient has safe and adequate airway control. The patient has appropriatepain relief and no significant post operative nausea or vomiting. Thepatient has achieved baseline mental status.Further assessment by Anesthesia Service: NoneOther Remarks:SIGNATURE: Myranda Boggs CRNA PATIENT NAME: Shania BakerDATE: September 04, 2017 : 9:15 AM PAGER/CONTACT #: [id number] NoteI agree with the anesthesia provider's assessment. 26 year old [id number] who is Day #1 status post Vaginal, Spontaneous Deliverydelivery. No apparent anesthetic complications at this time.Lyn Mckeon MDFebruary 20171:14 PM [facility] PROGRESSon 09-04-2017 PROGRESS HNO ID: [id number] thor: Ana María (Armando) CoverService: ObstetricsAuthor Type: MidwifeType: Progress NotesFiled: 09/04/2017 10:17 AMNote Text:OBSTETRICSPOSTPARTUM PROGRESS NOTEI saw and evaluated the patient. I reviewed the resident's note and agree,reviewed Kegal exercises, pericare, sxs of pre-eclampsia toreportpatient able to take BPs at home --will call if elevatedFundus firm 1FB below umbilicus, normal involutionColostrum easily expressed bilaterally , nipples intactpatient not interested in contraception at this timeto f/u with PCP re hypothyroid Synthroid doseSignature: Ana María Burk CNM MSNDate: 09/04/2017Time: 10:11 AMSERVICE DATE: September 04, 2017SERVICE TIME: 6:23 AMASSESSMENT:26 year old female who is Day #1 status post Vaginal,Spontaneous Delivery delivery. Pt desires discharge home today. Okay fordischarge if peds will d/c baby.Routine care.Rh negRubella immuneBirth Control: Undecided. Pt will follow up at PP visitAnticipate discharge today. Discharge instructions given to patientregarding pelvic rest, bathing, stairs, walking, lifting, driving, andfollow-up. Patient expresses understanding.Gestational HTNBlood pressures well controlled on no medsNo evidence of preeclampsiaHypothyroidismHome SynthroidSUBJECTIVE:Patient has no current complaints. Tolerating PO intake. Urinating withoutdifficulty. Passing flatus. Pain well controlled with current regimen.Lochia decreasing. Ambulating without difficulty.OBJECTIVE:PHYSICAL EXAM:Abdomen: Soft Appropriately tender to palpation Fundus firm belowumbilicus Non-distendedExtremities: No calf tenderness and Edema equal bilaterallyLAST VITALS:Pulse BP Resp O2 Sat Temp Pain (!) 57 127/72 18 36.4 ?C (97.5 ?F) 0/10HT/WT/BMI:Height Weight BMILABSDiagnostic tests reviewed for today's visit: Most recent labs and imagingresults.SIGNATURE: Jessica Reyes MD PATIENT NAME: Shania aBkerDATE: September 04, 2017 : 6:23 AM [facility] Post Delivery Evalon 018 ABO/RH(D) Negative [facility] CONSULT PROGon 09-03-2017 CONSULT PROG HNO ID: [id number] thor: Shira Velázquezrvice: AnesthesiologyAuthor Type: ResidentType: Consult Progress NoteFiled: 09/03/2017 5:48 AMNote Text:ANALGESIA PROGRESS RECORDCATHETER REMOVAL/END OF CASESERVICE DATE: 09/03/2017REMOVAL DATE AND TIME: 5:40 AMDELIVERY DATE AND TIME: 09/03/2017 at 3:54 AMCATHETER REMOVAL:Catheter Removal: Epidural catheter pulled intact, no apparentcomplications.SIGNATURE : Shira Min MD PATIENT NAME: Shania BakerDATE: September 03, 2017 : 5:47 AM PAGER/CONTACT #: [facility] LD NOTEon 09-03-2017 LD NOTE HNO ID: [id number] thor: Chanell Brockvice: ObstetricsAuthor Type: PhysicianType: LANDD Delivery NoteFiled: 09/03/2017 4:52 AMNote Text:OBSTETRICSDELIVERY SUMMARY - VAGINAL DELIVERYGestational Age at Delivery: 70x7bLonxjzy Date: 09/03/2017Service Time: 4:40 [id number] G1 now P1001 F admitted at 38w0d for IOL for gestationalhypertension without evidence of preeclampisa. Labor was induced withoxytocin and carrasquillo bulb. Induction was prolonged, lasting approximately 40hours, but ultimately the patient progressed to complete. She easilydelivered a viable female . The head delivered and the shouldersfollowed easily. There was no nuchal cord. The cord was doubly clamped andcut after a 30-second delay. The placenta delivered spontaneously, intact.The patient received oxytocin per protocol for hemorrhageprevention. Bilateral labial lacerations were repaired with 3-0 Polysorb.Baby and mom are bonding.Bg Cody Shania [[id number]] Labor EventsRupture Date: 09/02/17Rupture Time: 1535Rupture Type: AROMFluid Color: ClearInduction: Yes Induction Method: Oxytocin, Carrasquillo Bulb CatheterEpisiotomy/Laceration:E pisiotomy: NoneLacerations: LabialLabial Lacerations: Bilateral Labial Repair Completed: Yes Sutures Used: 3-0 Polyglactin 910Estimated Blood Loss (mL):Estimated Blood Loss (mL): 300Date and Time of :Date of : 09/03/17Time of : 0354Delivery Information:Primary Reason for Delivery : HypertensionAdditional Clinicial Indicator(s) for delivery: N/ADelivery type: Vaginal, Spontaneous DeliveryPresentation: VertexShoulder Dystocia Present: NoVacuum Used: NoForceps Used: NoCord:Complications: NoneDelayed Cord Clamping: YesPlacenta:Removal: SpontaneousAppearance: IntactAnesthesia:No data filedMeasurements, Apgars:No data filedA digital ?sweep? of the vaginal canal was performed by the Attending andit was ascertained that no instruments or other foreign bodies areretained within the cavity.Mother and baby are stable and bonding. Baby is in mother's arms.SIGNATURE: Jessica Reyes MD PATIENT NAME: Shania BakerDATE: September 03, 2017 : 4:39 AMAgree with resident findings.Resident performed the delivery and repair of labial lacerations underdirect supervision.I was present for the entire delivery and repair of labial lacerations.Chanell Oconnell MD [facility] PROCEDUREon 09-03-2017 PROCEDURE HNO ID: [id number] thor: Aurelio Hook: AnesthesiologyAuthor Type: AnesthesiologistType: ProceduresFiled: 09/03/2017 12:42 AMNote Text:OB ANESTHESIA PROCEDURE:EPIDURAL LABOR PCEA ANALGESIAPROCEDURE DATE: 09/03/2017PROCEDURE START TIME: 2215The patient was placed in a sitting position. Timeout was performed andinformed consent confirmed (see nurse's documentation). Using steriletechnique, the patient's back was prepped and draped. Skin site wasinfiltrated with local anesthetic.Beginning Pain Score: 7 out of 10VItals:Last Pulse02/16/18 : 81 Last BP09/02/17 : 122/67Needle: 17 gauge HusteadDepth of Needle: 4 cmDepth of Catheter at Skin: 8 cmCm of Catheter in Epidural Space: 4 cmInterspace: approximately M2Repskj of Attempts: 1Wet Tap Complication: NoDural Puncture Epidural: NoLoss of Resistance: AirParasthesias: None Time Amt Medication Pulse B.P. CommentsCatheterTEST 2223 2 cc 1.5% Lidocaine with 1:200,000 Epinephrine 97 145/79NegativeCatheterBOLUS 2224 5 cc 0.25% Bupivacaine NegINFUSION 2229 Continous Infusion 10 mL/hr PCEA: Bolus 5 mL, Lockout 15 mins 0.0625% Bupivacaine and 2 mcg/mLFentanyl plus 1.25 mcg/ml Epinephrine 90 138/77 Patient comfortable ableto flex kneesPain Score After Treatment: 4 out of 10See nurses' documentation for additional vitals.SIGNATURE: Aurelio Bower MD PATIENT NAME: Shania BakerDATE: September 03, 2017 : 12:40 AM PAGER/CONTACT #: [facility] PROGRESSon 09-03-2017 PROGRESS HNO ID: [id number] thor: Chanell Tavarez: ObstetricsAuthor Type: PhysicianType: Progress NotesFiled: 09/02/2017 11:44 PMNote Text:Comfortable with epidural.Physical exam :Vitals : stableHeart/Lungs : RRR/CTABAbdomen : uterus relaxed between contractions.SVE ; 6/100/0FETAL MONITORING/ASSESSMENT:Baseline: 145 bpm (09/02/17 2300 : Grisel Stein RN)Variability: Moderate (6-25 bpm) (09/02/17 2300 : Grisel Stein RN)Accelerations: Absent (09/02/17 2300 : Grisel Stein RN)Decelerations: Decelerations: (!) Early;Late (09/02/17 2300 : Grisel Brannon RN), Decel Frequency: Intermittent (09/02/17 2300 : Grisel Brannon RN)Contractions: Regular (09/02/17 2300 : Grisel Stein RN)Frequency: 2-4 (09/02/17 2300 : Grisel (Rn) MURIEL Stein)On pitocin 13 miu/minutePlan :1. IUPC placed , increase pitocin as per protocol until we obtain MVU'saround 200 units2. Continue monitoring3. Reexamine in 3 hours4. Inform MD if any concernsChanell Oconnell MD [facility] NURSING PROGon 09-02-2017 NURSING PROG HNO ID: [id number] Author: Lyly MalloryRn) MURIEL Bass Service: (none) Author Type: Registered Nurse Type: Nursing Progress Note Filed: 09/02/2017 3:53 PM Note Text: Pt up on birthing ball [facility] NURSING PROG HNO ID: [id number] thor: Grecia (Rn) ERIN Raviervice: NursingAuthor Type: Registered NurseType: Nursing Progress NoteFiled: 09/02/2017 6:22 AMNote Text:Patientt ok to shower, eat a light breakfast per doctors Cecile Lockhart. Plan of care discussed with patient. After shower, patientwill resume low dose pitocin and can walk for one hour, then a carrasquillo bulbwill be inserted. Pt agreed to this plan of care. [facility] PROCEDUREon 09-02-2017 PROCEDURE HNO ID: [id number] thor: Juanjo (Rupinder) Diegoervice: ObstetricsAuthor Type: ResidentType: ProceduresFiled: 09/02/2017 8:52 AMNote Text:Pt I.D: Shania BakerTime: 8:50 AMSign-out Confirmed and patient's allergies reviewedProcedure: Cervical ripening balloon placement. Patient was placed into dorsal lithotomy position. A 22F latexfoley catheter was placed manually into the cervical canal and past theinternal os. Once past the internal os, 60 mLs of normal saline was usedto inflate the carrasquillo balloon. Throughout the time, balloon remained in thedesired intrauterine position. Patient and fetus tolerated the procedurewell. Excellent hemostasis was maintained.Plan: Carrasquillo bulb with low-dose (6mU.min) pitocin for a maximum of 12hours. [facility] PROGRESSon 09-02-2017 PROGRESS HNO ID: [id number] thor: Chanell GutierrezDelorisvice: ObstetricsAuthor Type: PhysicianType: Progress NotesFiled: 09/02/2017 10:35 PMNote Text:OBSTETRICSINTRAPARTUM PROGRESS NOTESERVICE DATE: September 02, 2017SERVICE TIME: 10:22 PMSubjectivePatient with no complaints.ObjectiveLAST VITALS:Pulse BP Resp O2 Sat Temp Pain 83 132/74 20 36.6 ?C (97.9 ?F) 08/27PHYSICAL EXAM:General: WD, WNCERVICAL EXAM:Last Exam Notes: Dilation: 6 (09/02/172100 : Grisel Stein RN)Effacement (%): 80 (09/02/172100 : Grisel Stein RN)Station: -1 (09/02/172100 : Grisel Stein RN)Presentation: Vertex (09/02/17 1254 : Carla Harrison RN)MEMBRANES:Status: Membrane Status: Artificial (09/02/17 153 : Lyly Bass RN)Rupture Date: 09/02/17 (09/02/17 153 : Lyly Bass RN)Rupture Time: 153 (09/02/17 153 : Lyly Bass RN)Amniotic Fluid Color: Clear (09/02/17 153 : Lyly Bass RN)Amniotic Fluid Amount: Large (09/02/17 1532 : Lyly Bass RN)Additional Findings: NoneFETAL MONITORINGBaseline: 135 bpm (09/02/172129 : Grisel Stein RN)Variability: Moderate (6-25 bpm) (09/02/172129 : Grisel Stein RN)Accelerations: Present (09/02/172129 : Grisel Stein RN)Decelerations: Decelerations: None (09/02/172129 : Grisel Stein RN)Contractions: Regular (09/02/172129 : Grisel Setin RN)Frequency: 2-3 (09/02/172129 : Grisel Stein RN)NST Interpretation:FHR Category: 1 (09/02/170 : Grisel Garcia) Emil RN)FHR Category: Category ILABSDiagnostic tests reviewed for today's visit: Most recent labs and imagingresults.Assessment/Plan2 6 year old EGA:38w1d. Admitted for IOL for gestationalhypertension without evidence of preeclampsia.S/p carrasquillo bulb, oxytocin. Slow cervical change. Minimal change since3:30pm when pt was called 5. She was then 6 at 6pm, and cervix isunchanged despite oxytocin. Had a long discussion with the patient and herfamily regarding lack of progress. She has desired to go NCB, but is nowwilling to get an epidural. Discussed IUPC after epidural and if nocervical change in the next 4 hours, will proceed with section.FHT remains cat I and very reassuring.Active Problems: Gestational hypertension POA: Yes Assessment AND Plan:SIGNATURE: Jessica Reyes MD PATIENT NAME: Shania JuaresTE: September 02, 2017 : 10:22 PM PAGER/CONTACT #:I saw and evaluated the patient. Discussed with the resident and agreewith resident's findings and plan as documented in the resident's note.Chanell Oconnell MD [facility] PROGRESS HNO ID: [id number] thor: Chanell Brockvice: ObstetricsAuthor Type: PhysicianType: Progress NotesFiled: 09/02/2017 7:22 PMNote Text:OBSTETRICSINTRAPARTUM PROGRESS NOTESERVICE DATE: September 02, 2017SERVICE TIME: 5:50 PMSubjectivePatient with no complaints.ObjectiveLAST VITALS:Pulse BP Resp O2 Sat Temp Pain 88 109/63 20 36.9 ?C (98.4 ?F) 08/27PHYSICAL EXAM:General: WD, WN, NAD, comfortableCERVICAL EXAM:Last Exam Notes: Dilation: 6 (09/02/175 : Lyly Garcia) Kali RN)Effacement (%): 80 (09/02/171744 : Lyly Garcia) Kali RN)Station: -1 (09/02/17 1745 : Lyly Bass RN)Presentation: Vertex (09/02/17 1254 : Carla Harrison RN)MEMBRANES:Status: Membrane Status: Artificial (09/02/17 1532 : Lyly Garcia) MURIEL Bass)Rupture Date: 09/02/17 (09/02/17 1532 : Lyly Garcia) MURIEL Bass)Rupture Time: 1535 (09/02/17 1532 : Lyly Garcia) MURIEL Bass)Amniotic Fluid Color: Clear (09/02/17 1532 : Lyly Garcia) MURIEL Bass)Amniotic Fluid Amount: Large (09/02/17 1532 : Lyly Bass RN)Additional Findings: NoneFETAL MONITORINGBaseline: 140 bpm (09/02/17 1730 : Lyly Bass RN)Variability: Moderate (6-25 bpm) (09/02/17 1730 : Lyly Bass RN)Accelerations: Present (09/02/17 1730 : Lyly Bass RN)Decelerations: Decelerations: None (09/02/17 1730 : Lyly Thompson RN)Contractions: Regular (09/02/17 1730 : Lyly Bass RN)Frequency: 2 (09/02/17 1730 : Lyly Bass RN)NST Interpretation:FHR Category: 1 (09/02/17 1700 : Lyly Bass RN)FHR Category: Category ILABSDiagnostic tests reviewed for today's visit: Most recent labs and imagingresults.Assessment/Plan2 6 year old EGA:38w1d. Admitted for induction of labor forgetstional hypertension (P:C ratio of 0.1)..?1. Intrapartum course: Cat II FHT, maternal VSS - GBS - - S/P Carrasquillo balloon. Continue pitocin per protocol - up to 12 mU/min - Currently NCB - Epidural PRN - AROM @1532?2. GHTN: No signs of pre-eclampsia - Continue to follow BPs, will treat as indicatedSIGNATURE: Juanjo Rivera MD PATIENT NAME: Shania JuaresTE: September 02, 2017 : 5:50 PM PAGER/CONTACT #:I saw and evaluated the patient. Discussed with the resident and agreewith resident's findings and plan as documented in the resident's note.Will recheck in 2 hours.Chanell Oconnell MD [facility] PROGRESS HNO ID: [id number] thor: Claus Desire: ObstetricsAuthor Type: PhysicianType: Progress NotesFiled: 09/02/2017 3:44 PMNote Text:OBSTETRICSOXYTOCIN LABOR NOTESERVICE DATE: September 02, 2017SERVICE TIME: 3:39 PMSUBJECTIVE:Patient with no complaints.Comfortable, no epidural.Oxytocin Infusion - If collapsed, click to expand (last 4 hours) Date/Time Action Medication Dose Rate 09/02/17 1500 Rate Verify oxytocin 30 unit in LR 500 mL iv infusion (INDUCTION/AUGMENTATION)(PITOCI N) 12 claudette-units/min 12 mL/hr 09/02/17 1400 Rate/Dose Change oxytocin 30 unit in LR 500 mL iv infusion (INDUCTION/AUGMENTATION)(PITOCI N) 12 claudette-units/min 12 mL/hr 09/02/17 1330 Rate/Dose Change oxytocin 30 unit in LR 500 mL iv infusion (INDUCTION/AUGMENTATION)(PITOCI N) 10 claudette-units/min 10 mL/hr 09/02/17 1300 Rate/Dose Change oxytocin 30 unit in LR 500 mL iv infusion (INDUCTION/AUGMENTATION)(PITOCI N) 8 claudette-units/min 8 mL/hr 09/02/17 1230 Rate Verify oxytocin 30 unit in LR 500 mL iv infusion (INDUCTION/AUGMENTATION)(PITOCI N) 6 claudette-units/min 6 mL/hrOBJECTIVE:Last VitalsBP Temp Pulse Resp O2 Sat Ctuw500/69 37.1 ?C (98.8 ?F) 65 20 2/10 224 3 453BP: 122/68 139/78 123/69Pulse: 77 76 65Resp:Temp: 37.1 ?C (98.8 ?F)TempSrc:PHYSICAL EXAM:General: WD, WNCervical Exam: /-1, AROM, clearPresentation: vertexCERVICAL EXAM:Last Exam Notes: Dilation: 5 (09/02/17 1532 : Lyly (Muriel) MURIEL Bass)Effacement (%): 70 (09/02/17 1532 : Lyly Garcia) MURIEL Bass)Station: -1 (09/02/17 1532 : Lyly (Muriel) MURIEL Bass)Presentation: Vertex (09/02/17 1254 : Carla (Rn) MURIEL Harrison)MEMBRANES:Status: Membrane Status: Artificial (09/02/17 1532 : Lyly Garcai) MURIEL Bass)Rupture Date: 09/02/17 (09/02/17 1532 : Lyly Garcia) MURIEL Bass)Rupture Time: 1535 (09/02/17 1532 : Lyly Garcia) MURIEL Bass)Amniotic Fluid Color: Clear (09/02/17 1532 : Lyly (Muriel) MURIEL Bass)Amniotic Fluid Amount: Large (09/02/17 1532 : Lyly Garcia) MURIEL Bass)Additional Findings: AROM performed during this exam. Head well appliedto cervix. heart tones reassuring before and after procedure. MONITORINGBaseline 140s, moderate variability, +accels, no decels.TOCO: ctx [id number] CATEGORY: Category IASSESSMENT/PLAN:26 year old EGA:38w1d. Oxytocin infusing. Indication for IOLfor gestational HTN.Continue oxytocin per protocol, AROM, Discussed with patient and patientis in agreement with plan and epidural prn.LABSDiagnostic tests reviewed for today's visit: reviewed.SIGNATURE: Claus Stewart MD PATIENT NAME: Shania BakerDATE: September 02, 2017 : 3:39 PM [facility] PROGRESS HNO ID: [id number] thor: Juanjo (Paco Cortezervice: ObstetricsAuthor Type: ResidentType: Progress NotesFiled: 09/02/2017 9:09 AMNote Text:OBSTETRICSINTRAPARTUM PROGRESS NOTESERVICE DATE: September 02, 2017SERVICE TIME: 9:04 AMSubjectivePatient with no complaints.ObjectiveLAST VITALS:Pulse BP Resp O2 Sat Temp Pain 87 125/71 20 36.9 ?C (98.4 ?F) 10PHYSICAL EXAM:General: WD, WN, NAD, comfortableCERVICAL EXAM:Last Exam Notes: Dilation: 2.5 (09/02/17 0358 : Grecia Garcia) MURIEL Ravi)Effacement (%): 70 (09/02/17 0358 : Grecia Garcia) MURIEL Ravi)Station: -2 (09/02/17 0358 : Grecia Garcia) MURIEL Ravi)Presentation: Vertex (09/01/17 1400 : Nicol Rose)MEMBRANES:Status: Membrane Status: Intact (09/01/17 1400 : Nicol Rose)Additional Findings: Carrasquillo balloon placed, please see procedure noteFETAL MONITORINGBaseline: 150Variability: ModerateAccelerations: PresentDecelerations:Contractio ns:Frequency:NST Interpretation:FHR Category: IIFHR Category: Category II - numerous interruptions in FHT, cannotconclusively state if discrete decelerations seen, variability andaccelerations confirmed which is reassuring at this time.LABSDiagnostic tests reviewed for today's visit: Most recent labs and imagingresults.Assessment/Plan2 6 year old EGA:38w1d. Admitted for induction of labor forgetstional hypertension (P:C ratio of 0.1)..1. Intrapartum course: Cat II FHT, maternal VSS - GBS - - Now with carrasquillo balloon, Continue pitocin per protocol - up to 6mU/min until carrasquillo balloon falls out. - Currently NCB - Epidural PRN - AROM if head well applied.2. GHTN: No signs of pre-eclampsia - Continue to follow BPs, will treat as indicatedSIGNATURE: Juanjo Rivera MD PATIENT NAME: Shania BakerDATE: September 02, 2017 : 9:04 AM PAGER/CONTACT #: [facility] PROGRESS HNO ID: [id number] thor: Kayy (RupinderMary Haywardervice: ObstetricsAuthor Type: ResidentType: Progress NotesFiled: 09/02/2017 5:50 AMNote Text:Discission with patient and family regarding planAgain reviewed indications for induction and reasons why it would beunsafe to dc home. Patient is willing to continue with induction at thistime.Pit has been off for 1 hour. Patient would like to take a shower and eat alight breakfast, and then will restart Pitocin at 2mU/min. Discussedintracervical Carrasquillo, patient is amenable but would like a chance to walkfor an hour after restarting Pitocin.Cat 1 FHTContracting irregularly q1-4 with pit off, but she is completelycomfortableWill plan to restart pit after shower and a meal, and then insertintracervical carrasquillo when pit is at 4 or 6mU/min.Dr. Oconnell present for Selena Huber MDbruary 2017 5:49 AM [facility] PROGRESS HNO ID: [id number] thor: Kayy Haywardervice: ObstetricsAuthor Type: ResidentType: Progress NotesFiled: 09/02/2017 4:52 AMNote Text:OBSTETRICSINTRAPARTUM PROGRESS NOTESERVICE DATE: September 02, 2017SERVICE TIME: 4:51 AMSubjectivePatient with no complaints. and Has pain with contractions but declinesintervention.ObjectiveL AST VITALS:Pulse BP Resp O2 Sat Temp Pain 78 123/64 20 36.9 ?C (98.4 ?F) 08/27PHYSICAL EXAM:General: WD, WN, NAD, comfortableCERVICAL EXAM:Last Exam Notes: Dilation: 2.5 (09/02/17 0358 : Grecia aGrcia) MURIEL Ravi)Effacement (%): 70 (09/02/17 0358 : Grecia Garcia) Trav, MURIEL)Station: -2 (09/02/17 0358 : Grecia Garcia) Trav, MURIEL)Presentation: Vertex (09/01/17 1400 : Nicol Rose)MEMBRANES:Status: Membrane Status: Intact (09/01/17 1400 : Nicol Rose)Additional Findings: NoneFETAL MONITORINGBaseline: 145 bpm (09/02/17 0400 : Grecia (Muriel) Trav, MURIEL)Variability: Minimal (detectable but < or equal to 5 bpm) (400 : Grecia Garcia) MURIEL Ravi)Accelerations: Present (09/02/17 0400 : Grecia Garcia) MURIEL Ravi)Decelerations: Decelerations: None (09/02/17 0400 : Grecia Garcia) Trav,MURIEL)Contractions: Regular (09/02/17 0400 : Grecia Garcia) Trav, MURIEL)Frequency: 1-5 (09/02/17 0400 : Grecia Garcia) MURIEL Ravi)NST Interpretation:FHR Category: 1 (09/02/17 0400 : Grecia Ravi RN)FHR Category: Category ILABSDiagnostic tests reviewed for today's visit: Most recent labsAssessment/Plan26 year old EGA:38w1d. Admitted for induction of labor forgestational hypertension.?Induction of labor?No cervical change since admission 2.5/70/-2Pitocin at 20mU/min for over an hourContracting q1min but patient still quite comfortableCat 1 FHT?GBS negNo PP LARCPlans NCB?Turn off pitocin for 1 hour for pit break. Restart at 2mU promptly in anhourgHTNP/C = 0.1BPs mildly elevated at admission, normal now. Asymptomatic and no e/oHELLP on labsContinue to monitor??HypothyroidismHome synthroid?SIGNATURE: Kayy Huber MD PATIENT NAME: Shania BakerDATE: September 02, 2017 : 4:51 AM PAGER/CONTACT #: [phone] [facility] PROGRESS HNO ID: [id number] thor: Kayy Haywardervice: ObstetricsAuthor Type: ResidentType: Progress NotesFiled: 09/02/2017 12:46 AMNote Text:OBSTETRICSINTRAPARTUM PROGRESS NOTESERVICE DATE: September 02, 2017SERVICE TIME: 12:16 AMSubjectivePatient asleep/resting comfortably. Has some pain in hips but not feelingmuch with contractions at all.ObjectiveLAST VITALS:Pulse BP Resp O2 Sat Temp Pain 68 102/57 20 36.9 ?C (98.4 ?F) 0/10PHYSICAL EXAM:General: WD, WN, NAD, comfortableCERVICAL EXAM:Last Exam Notes: Dilation: 2.5 (09/02/17 0013 : Kayy (Res) Cecile)Effacement (%): 70 (09/02/17 0013 : Kayy (Res) Cecile)Station: -2 (09/02/17 0013 : Kayy (Res) [facility])Presentation: Vertex (09/01/17 1400 : Nicol Rose)MEMBRANES:Status: Membrane Status: Intact (09/01/17 1400 : Nicol Rose)Additional Findings: NoneFETAL MONITORINGBaseline: 135 bpm (09/01/17 2330 : Grecia (Rn) Trav, RN)Variability: Moderate (6-25 bpm) (09/01/17 2330 : Grecia (Rn) Trav,RN)Accelerations: Present (09/01/17 2330 : Grecia (Rn) Trav, RN)Decelerations:Contractions: Regular (09/01/170 : Grecia (Rn) [place], RN)Frequency: 1-3 (09/01/170 : Grecia (Rn) Trav, RN)NST Interpretation:FHR Category: 1 (09/01/17 2330 : Grecia (Rn) Trav, RN)FHR Category: Category II for variable decel. Baseline 135, moderatevariability and accels.LABSDiagnostic tests reviewed for today's visit: Most recent labsAssessment/Plan26 year old EGA:38w1d. Admitted for induction of labor forgestational hypertension.gHTNP/C = 0.1BPs mildly elevated at admission, normal now. Asymptomatic and no e/oHELLP on labsContinue to monitorInduction of labor?Cervix 2.5/70/-2Pitocin at 14mU/minContracting q1-3min on toco but very comfortableCat 2 FHT for a variable which resolved with lateral positioning. Modvariability and accels, overall very reassuringGBS negNo PP LARCPlans NCBContinue pitocin induction. Plan to recheck cervix at 4am?HypothyroidismHome synthroid?SIGNATURE: Kayy Huber MD PATIENT NAME: Shania BakerDATE: September 02, 2017 : 12:16 AM PAGER/CONTACT #: [phone] [facility] ANE PREOPon 09-01-2017 ANES PREOP HNO ID: [id number] thor: Reginaldo Loo) NavadehService: AnesthesiologyAuthor Type: AnesthesiologistType: Anesthesia PreOpFiled: 09/01/2017 6:52 PMNote Text:OB ANESTHESIA PRE-PROCEDURE ASSESSMENTSERVICE DATE: 09/01/2017SERVICE TIME: 6:21 PMEstimated body mass index is 27.61 kg/(m2) as calculated from thefollowing: Height as of 08/31/17: 165.1 cm (5' 5). Weight as of 08/31/17: 75.3 kg (165 lb 14.4 oz).ASA Class: 2Adequate NPO Status: No, salad and yogurt today at 4:30PMALLERGIESNo Known AllergiesAirway Assessment: MP 2; Neck ROM: Full ROM without neurologic symptoms;Airway Evaluation: Small mouth openingDentition: Teeth intactSymptoms of Sleep Apnea: DeniesHematocritDate Value Ref Range Ndsspr9509/01/2017 39.6 36.0 - 46.0 % Final Platelet CountDate Value Ref Range Hdmqbm5209/01/2017 206 150 - 400 k/uL Final CreatinineDate Value Ref Range Pbhvjb9309/01/2017 0.56 (L) 0.58 - 0.96 mg/dL Final Vitals: 09/01/18167BP: 108/59 134/73 121/64Pulse: 93 85 90Resp: 20Temp:TempSrc:Previous Anesthesia: No history of adverse event Family history ofanesthetic problems: NoneAdditional Physical Exam:Lungs: Clear to auscultation. Breath Sounds Equal: YesCardiac: Regular rhythmAdditional Pertinent Findings: NoneOBSTETRIC HISTORY:ACTIVE PROBLEM LISTHypothyroidismRh Negative State in Antepartum PeriodContraceptive ManagementHypothyroid in , AntepartumGestational HypertensionPatient desires to deliver naturally. Discussed the option for epiduraland patient states she doesn't want to sign consent until she decides shewants the epidural.Previous OB Anesthetic: NonePast Obstetric History: NoneCurrent Obstetric Problems/ Important Considerations:Gestational HypertensionGERD: Denies GERDAnesthetic Risks, Benefits, Alternatives, Personnel and Consent Discussed. Separate Consent Signed at this Interview: YesBlood Products: Will accept Blood/Blood ProductsANESTHETIC PLAN: Neuraxial Block for LaborPain Management Plan: Parenteral or Oral and Neuraxial OpioidsEPIC Chart ReviewACTIVE PROBLEM LISTHypothyroidismRh Negative State in Antepartum PeriodContraceptive ManagementHypothyroid in , AntepartumGestational HypertensionPAST MEDICAL HISTORYDiagnosis Date- Gestational hypertension 09/01/2017- Hypothyroidism- Syncope 2010 negative workup (tilt test, cardiac)PAST SURGICAL HISTORYProcedure Laterality Date- REMOVAL ADENOIDS,PRIMARY,<12 Y/OFAMILY HISTORYProblem Relation Age of Onset- Lipids Mother- Hypertension Mother- No Ocular Disease Mother- Lipids Father- No Ocular Disease Father- Heart Maternal Grandmother- Thyroid Maternal Grandmother- Heart Maternal Grandfather- DVT Maternal Grandfather- Cataract Paternal Grandmother- Cataract Paternal Grandfather- Coronary Artery Disease Paternal Grandfather CABGSocial HistorySubstance Use Topics- Smoking status: Never Smoker- Smokeless tobacco: Never Used- Alcohol use NoPrescriptions Prior to Admission:IRON,CARBONYL/ASCORBI C ACID (FE C ORAL) Take by mouth. Disp: Rfl:09/01/2017 at Unknown timelevothyroxine (SYNTHROID) 50 mcg tablet Take 1 tablet by mouth once daily.Disp: 90 tablet Rfl: 1 09/01/2017 at Unknown timePRENATAL VIT 91/IRON/FOLIC/DHA ( + DHA ORAL) Take by mouth. Disp: Rfl: 08/31/2017 at Unknown timeBreast Pump Device Disp: 1 Device Rfl: 0 Unknown atUnknown timeInpatient medications reviewed in EPIC.I have interviewed and examined the patient. I have reviewed the medicalrecord , pertinent consults and/or the pre-anesthesia evaluation,pertinent labs, and test results.Significant changes in the patient's condition since the History andPhysical, not otherwise documented in primary service progress notes: NoThis contains updated information obtained within 48 hours ofSurgery/Procedure.SIGNATURE: Drake Rivera DO PATIENT NAME: Shania BakerDATE: September 01, 2017 : 6:20 PM : 1990 Normal [facility] CBCon 09-01-2017 Erythrocyte distribution width Auto Ratio (RBC) 12.4 % Normal 11.5-15.0 [facility] Erythrocytes (RBC) 4.01 10*6/uL Normal 3.90-5.20 [facility] Hematocrit (HCT) 39.6 % Normal 36.0-46.0 [facility] Hemoglobin mass conc (Bld) 14.1 g/dL Normal 11.5-15.5 [facility] MCH 35.2 pG High 26.0-34.0 [facility] mass conc (RBC) 35.6 g/dL Normal 30.5-36.0 [facility] MCV 98.8 fL Normal 80.0-100.0 [facility] Platelet mean volume (PMV) 11.5 fL Normal 9.0-12.7 [facility] Platelets 206 10*3/uL Normal 150-400 [facility] WBC (Leukocytes) 10.21 10*3/uL Normal 3.70-11.00 [facility] Comp Metabolic Panelon 09-01 Alanine aminotransferase (ALT) 33 U/L Normal 7-38 [facility] Albumin 3.5 g/dL Low 3.9-4.9 [facility] Alkaline phosphatase (ALP) 225 U/L High 36-108 [facility] Anion gap 14 mmol/L Normal 9-18 [facility] Aspartate aminotransferase (AST) 27 U/L Normal 13-35 [facility] Bilirubin (total) 0.3 mg/dL Normal 0.2-1.3 [facility] Calcium 9.5 mg/dL Normal 8.6-10.0 [facility] Chloride 103 mmol/L Normal 97-105 [facility] CO2 21 mmol/L Low 22-33 [facility] Creatinine 0.56 mg/dL Low 0.58-0.96 [facility] Glucose mass conc 68 mg/dL Low 74-99 [facility] Potassium molar conc 4.1 mmol/L Normal 3.7-5.1 [facility] Protein 6.8 g/dL Normal 6.3-8.0 [facility] Sodium 138 mmol/L Normal 136-144 [facility] Urea nitrogen 9 mg/dL Normal 7-21 [facility] HISTORY PHYSICALon 8 HISTORY PHYSICAL HNO ID: [id number] thor: Nicol Martinez EatonService: ObstetricsAuthor Type: PhysicianType: HANDPFiled: 09/01/2017 2:06 PMNote Text:OBSTETRICSHISTORY AND PHYSICALSERVICE DATE: September 01, 2017SERVICE TIME: 12:46 PMASSESSMENT AND PLAN:26 year old EGA:38w0d presents for IOL secondary to GHTN. Spentapproximately 30 min discussing R/B/A of IOL secondary to GHTN. Stronglyrecommend IOL as gold standard treatment of related HTN.1. Elevated BPs:- CBC, CMP, P:C ratio, uric acid- Continue to follow BPs q15min, IV antihypertensives PRN2. FWB: Prior testing reassuring.- Complete NST3. Hypothyroidism;- Continue Synthroid.4. Dispo: Pending BPs and lab findings.SUBJECTIVE:Patient's stated reason for arrival:CHIEF COMPLAINT: Elevated BPsHISTORY OF THE PRESENT ILLNESS: The patient is a 26 year old female,, who is at 38w0d with an SKYLAR of 09/15/2017, by Last Menstrual Perioddating method. Patient is here following referall to triage after twoelevated BPs at work at 140s/70s, BP yesterday was 142/80. Good fetalmovement. Denies vaginal bleeding. Denies contractions. Denies leaking offluid. Denies CAMARA, changes in vision, upper abdominal pain, new onset lowerextremity swelling.HISTORY REVIEWPAST MEDICAL HISTORYDiagnosis Date- Hypothyroidism- Syncope 2010 negative workup (tilt test, cardiac)PAST SURGICAL HISTORYProcedure Laterality Date- REMOVAL ADENOIDS,PRIMARY,<12 Y/OFAMILY HISTORYProblem Relation Age of Onset- Lipids Mother- Hypertension Mother- No Ocular Disease Mother- Lipids Father- No Ocular Disease Father- Heart Maternal Grandmother- Thyroid Maternal Grandmother- Heart Maternal Grandfather- DVT Maternal Grandfather- Cataract Paternal Grandmother- Cataract Paternal Grandfather- Coronary Artery Disease Paternal Grandfather CABGSocial History Marital status: Spouse name: Years of education: Number of children: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[employer] [place]Social [place] Main Topics Smoking status: Never Smoker Smokeless status: Never Used Alcohol use: No Drug use: No Sexual activity: Yes Partners with: MaleObstetric History T0 L0 SAB0 TAB0 Ectopic0 Multiple0 Live Fgnans9Xmjn of Baby 1: Not recorded Date: Not recorded GA: Not recorded Delivery: Not recorded Apgar1: Not recorded Apgar5: Not recorded Living: Not recordedActive Non-Hospital Problems Diagnosis Date Noted- Hypothyroid in , antepartum 08/24/2017- Contraceptive management 07/27/2017 Overview Note: Declines PP LARC- Hypothyroidism 02/10/2017- Rh negative state in antepartum period 02/10/2017ALLERGIES: ALLERGIESNo Known AllergiesPRIOR TO ADMISSION MEDICATIONS:Prior to Admission MedicationsPrescriptions Last Dose Informant Patient Reported? Taking?Breast Pump Device No NoSig: lactationIRON,CARBONYL/ASCORBIC ACID (FE C ORAL) Yes NoSig: Take by mouth. VIT 91/IRON/FOLIC/DHA ( + DHA ORAL) Yes NoSig: Take by mouth.levothyroxine (SYNTHROID) 50 mcg tablet No NoSig: Take 1 tablet by mouth once daily.Facility-Administered Medications: NoneREVIEW OF SYSTEMS:GENERAL: No weight loss, malaise or fevers.HEENT: Negative for frequent or significant headaches, No changes inhearing or vision, no nose bleeds or other nasal problemsNECK: Negative for goiter, pain or significant neck swellingRESPIRATORY: Negative for cough, hemoptysis, wheezing or shortness ofbreathCARDIOVASCULAR: Negative for chest pain, leg swelling or palpitationsGI: No nausea, vomiting, or diarrheaGU: No history of dysuria, frequency or incontinenceGYN: Negative for abnormal vaginal bleeding, abnormal vaginal dischargeMUSCULOSKELETAL: Negative for joint pain or swelling, back pain or musclepainSKIN: Negative for lesions, rash, and itching.HEMATOLOGY/LYMPHOLOGY: Negative for prolonged bleeding, bruising easily orswollen nodes.ENDOCRINE: Negative for cold or heat intolerance, polyuria or polydipsia.NEURO: No history of headaches, syncope, paralysis, seizures or tremorsThe remainder of the review of systems is negative.OBJECTIVE:LAST VITALS:Pulse BP Resp O2 Sat Temp Pain 137/87HT/WT/BMI:Height Weight BMIPHYSICAL EXAM:General: WD, WN, NAD, comfortableHEENT: NC/ATLungs: clearHeart: RR, S1, J7Vozezge: soft, nontender, no massesUterus: soft, NTExtremities: No edemaDTRs: 2+FHT: 140 bpm (09/01/17 1246 : Leanna Patel RN) bpmSt Spec Exam: DeferredCERVICAL EXAM:Dilation: 2 (09/01/17 1400 : Nicol Juan Eatluke) cmStation: -2 (09/01/17 1400 : Nicol Rose)Effacement: 80 (09/01/17 1400 : Nicol Rose) %Position: cephalicPresentation: Pelvimetry: DeferredFETAL MONITORING/ASSESSMENT:Baseline: 140 bpm (09/01/17 1246 : Leanna Patel RN)Variability: Moderate (6-25 bpm) (09/01/17 1246 : Leanna Patel RN)Accelerations: Present (09/01/17 1246 : Leanna Patel RN)Decelerations: Decelerations: None (09/01/17 1246 : Leanna Patel RN)Contractions: Not present (09/01/17 1246 : Leanna Patel RN)Frequency:NST Interpretation:FHR Category: 1 (09/01/17 1246 : Leanna Patel RN)NST Comments:EFW: Based off last ultrasound documented in imaging results. LABSDiagnostic tests reviewed for today's visit: Most recent labsMost recent imagingSIGNATURE: Juanjo Rivera MD PATIENT NAME: Shania BakerDATE: September 01, 2017 : 12:46 PMAttending NoteI evaluated the patient and personally participated in the cleaning components. I agree with the resident's findings and plan as documented and havediscussed the case and management of the patient's care with the resident.Signature: ALEK FLORESate: 09/01/2017Time: 2:06 PM [facility] NURSING PROGon 09-01-2017 NURSING PROG HNO ID: [id number] thor: Melanie (Rn) Maria, RNService: (none)Author Type: Registered NurseType: Nursing Progress NoteFiled: 09/01/2017 6:31 PMNote Text: Nursing Progress NotePatient Name: Shania BakerMRN: [id number] [facility]___ ___Daily Note:1830 Reg diet given: gertrudis wellThis note was completed by: Melanie Sifuentes RN [facility] PROGRESSon 09-01-2017 PROGRESS HNO ID: [id number] thor: Chanell Brockvice: ObstetricsAuthor Type: PhysicianType: Progress NotesFiled: 09/01/2017 7:55 PMNote Text:26 year old EGA:38w0d presents for IOL secondary to GHTN.Not symptomatic.HELLP labs : normal.Just started on pitocin..GBS negative.FHT : cat x1.Plan :1. Continue monitoring2. Continue increasing pitocin as per protocol.3. Inform MD if any concerns.Chanell Oconnell MD [facility] PROGRESS HNO ID: [id number] thor: Nicol Daigleervice: ObstetricsAuthor Type: PhysicianType: Progress NotesFiled: 09/01/2017 5:21 PMNote Text:OB STAFF NOTEPt and took approximately 1 hour to discuss plan and decided tostay for IOL but request to start IOL in 2-3 hours. FHT: Cat 1, Ctx;3-5 min. Offered pt lunch and will check in after to initiate Pit.NICOL ROSE, DO09/01/2017.5:21 PM [facility] Pre Delivery T+Son 8 ABO/RH(D) Negative Normal [facility] Antibody Identified Normal [facility] Comment on above: Result Comment: ANTI -D PRESENT.See Physician's Report under Antibody Interpretation. Antibody Screen Positive Normal [facility] Protein/Creatinine Ratioon 0 09-01-2017 Creatinine,Urine, Ran 18.3 mg/dL Low 20-300 [facility] Protein Urine Random <4 Normal 0-12 [facility] Protein/Creatinin e Ratio Unable to calculate due to invalid or missing component. Normal <0.2 [facility] RBC Antibody Interp (Lab Ord ered)on 09-01-2017 Antibody Interp (NOTE) Normal [facility] Comment on above: Result Comment: Anti -D, an antibody to the D antigen in the Rh blood group system isidentified in a sample collected on 09/01/2017. The antibody isclinically significant in terms of transfusion and may cause ahemolytic transfusion reaction if D antigen positive red blood cellsare transfused. In the setting of , anti-D may causehemolytic disease of the fetus and (HDFN).[facility] the patient received Rh ImmuneGlobulin (RhIG) on 06/24/2017. The antibody screen on 06/24/2017 wasnegative. The findings are consistent with passive immunization dueto RhIG administration. She remains a candidate for RhIG which shouldbe administered based on established protocols. Performed By: #### A BINTB ####[facility] [place], [place] [phone] Physician Review Signed by Shilpi Walsh MD ([id number]) Normal [facility] Comment on above: Performed By: #### A BINTB ####[facility] [place], [place] [phone] Uric Acidon 09-01-2017 Urate 4.6 mg/dL Normal 2.0-7.0 [facility] Ferritinon 07-26-2017 Ferritin 21.30 ng/mL Normal 8.00-252.00 [facility] Comment on above: Performed By: #### F ERR ####[place] [address] Free Thyroxineon 07-26-2017 Thyroxine (T4) free 0.84 ng/dL Normal 0.76-1.46 [facility] Comment on above: Performed By: #### F T4 ####[facility] [place] [address] Hemogramon 07-26-2017 Erythrocyte distribution width Auto Ratio (RBC) 13.3 % Normal 11.7-14.4 [facility] Comment on above: Performed By: #### C BC1 ####[place] [address] Erythrocytes (RBC) 3.82 mil/cmm Low 3.93-5.22 [facility] Comment on above: Performed By: #### C BC1 ####[place] [address] Hematocrit (HCT) 37.7 % Normal 34.1-44.9 [facility] Comment on above: Performed By: #### C BC1 ####[place] [address] Hemoglobin mass conc (Bld) 13.3 g/dL Normal 11.2-15.7 [facility] Comment on above: Performed By: #### C BC1 ####[place] [address] MCH 34.8 pg High 25.6-32.2 [facility] Comment on above: Performed By: #### C BC1 ####[place] [address] MCHC mass conc (RBC) 35.3 % High 31.6-34.8 [facility] Comment on above: Performed By: #### C BC1 ####[place] [address] MCV 98.7 fL High 79.4-94.8 [facility] Comment on above: Performed By: #### C BC1 ####[place] [address] Platelet mean volume (PMV) 10.4 fL Normal 9.4-12.3 [facility] Comment on above: Performed By: #### C BC1 ####[facility] [place] [address] Platelets 200 thou/cmm Normal 182-369 [facility] Comment on above: Performed By: #### C BC1 ####[facility] [place] [address] RDW SD 48.0 fl High 36.4-46.3 [facility] Comment on above: Performed By: #### C BC1 ####[place] [address] WBC (Leukocytes) 13.36 thou/cmm High 3.98-10.04 [facility] Comment on above: Performed By: #### C BC1 ####[place] [address] TSH, 3rd generationon 2017 TSH, 3rd generation 1.240 uIU/mL Normal 0.358-3.740 [facility] Comment on above: Performed By: #### T SH3 ####[place] [address] CNPNon 01-29-2017 CNPN Telephone (AGOBPOB) SHANIA ELAINE ([id number]) 1990 F CHTDate Time Provider Department01/29/17 ALIVIA SCHWAB ([place]) AGOBPOB During your visit today, we recorded the following information about you:Alivia Grewal CNM 01/29/2017 7:31 AM Jennyfer canceled her appointment with Dr Coates.Please make her an appointment with one of our offices for Shara has a quant ANDgt; [phone] (Muriel) Funmi 02/02/2017 10:51 AM [place] Pt no showed her appt with Dr Coates, she needs to reschedule anultrasound at one of our locations with a follow up and an initial .Alice (Rn) Funmi 02/09/2017 9:58 AM SignedI noted in pts chart that she is seeing another OB. Phone encounter will beclosed.Allergies As of Date: 01/29/2017(No Known Allergies)Date Reviewed: 01/25/2017Reviewed by: Paola Brar - Fully AssessedReason for Visit: Follow Up Tests Results [770]Prescriptions as of 01/29/2017 Sig: OMEGA-3 FATTY ACIDS 312 MG-DH* Take 1 tablet by mouth once d*X LEVONORGESTREL 0.15 MG-ETHINY* Take 1 tablet by mouth once d* LEVOTHYROXINE 50 MCG TABLET Take 1 tablet by mouth once d*X NAPROXEN 500 MG TABLET Take 1 tablet by mouth twice *Problem List As Of Date 01/29/2017 Noted Resolved IT band syndrome [M76.30] INVALID FOR* Pain in joint, pelvic region and thigh [M25.559]INVALID FOR* Status:Closed by ALIVIA SCHWAB CNM on 01/29/17 Normal [facility] Free Thyroxineon 01-28-2017 Thyroxine (T4) free 1.16 ng/dL Normal 0.76-1.46 [facility] Comment on above: Performed By: #### F T4 ####[address] [address] HCG,Totalon 01-28-2017 [place] [address].0 m[IU]/mL Normal [facility] Comment on above: Result Comment: Male < or = 1Non- female 1- 3Gestational Age:0.2-1 Week 5 - 501-2 Weeks 50 - 5002-3 Weeks 100 - 13506-3 Weeks 500 - 235293-1 weeks 1000 - 819302-0 weeks 99167 - 100,0006-8 weeks 01046 - 200,0002-3 months 71964 - 100,000 Performed By: #### H CG ####[address] [address] TSH, 3rd generationon 2016 TSH, 3rd generation 1.930 uIU/mL Normal 0.358-3.740 [facility] Comment on above: Performed By: #### T SH3 ####[address] 01-27-2017 CNNURSE Nurse Visit (DIONNE) SHANIA DURAN ([id number]) 1990 F CHTDate Time Provider Department01/27/17 8:00 AM [facility] KIMI TRUONG During your visit today, we recorded the following information about you:Emanuel MalloryKirkbride CenterMary Taylor 01/27/2017 8:19 AM Omari Baker presents in office today for: Lab Draw only.Ordering Provider: Alivia Wong CNM and Janay Garcia.Labs ordered as follows - HCG Quantitative, TSH, T4 Free/free thyroxMethod for obtaining blood: Phlebotomy was performed, accessing rightantecubital vein.Blood was obtained using a 21g x 3/4 inch butterfly needle.2 light green tubes were drawn. Both tubes have printed labels from [employer]. Patient verified the information is correct.Needle removed intact. Dressing secured.Patient denies discomfort, dizziness, light-headedness or weakness and left thedepartment without assist.Emanuel ([facility]) [id number]/27/2017 08:15:48[facility] Taylor 01/27/2017 8:19 AM Omari Baker presents in office today for: Lab Draw only.Ordering Provider: Alivia Wong CNM and Janay Garcia.Labs ordered as follows - HCG Quantitative, TSH, T4 Free/free thyroxMethod for obtaining blood: Phlebotomy was performed, accessing rightantecubital vein.Blood was obtained using a 21g x 3/4 inch butterfly needle.2 light green tubes were drawn. Both tubes have printed labels from [employer]. Patient verified the information is correct.Needle removed intact. Dressing secured.Patient denies discomfort, dizziness, light-headedness or weakness and left thedepartment without assist.Emanuel Taylor01/27/2017 08:15:48Referring Provider: SELF [200]Allergies As of Date: 01/27/2017(No Known Allergies)Date Reviewed: 01/25/2017Reviewed by: Paola Brar - Fully AssessedReason for Visit: Phlebotomy [1172]Primary Visit Diagnosis:Absence of menstruation [N91.2] Other Visit Diagnosis:Maternal hypothyroidism, antepartum, first trimester [O99.281, E03.9]Order(s):VENIPUNCTURE [31933CUN] Order #: [id number] as of 01/27/2017 Sig: OMEGA-3 FATTY ACIDS 312 MG-DH* Take 1 tablet by mouth once d* LEVONORGESTREL 0.15 MG-ETHINY* Take 1 tablet by mouth once d* LEVOTHYROXINE 50 MCG TABLET Take 1 tablet by mouth once d* NAPROXEN 500 MG TABLET Take 1 tablet by mouth twice *Problem List As Of Date 01/27/2017 Noted Resolved IT band syndrome [M76.30] INVALID FOR* Pain in joint, pelvic region and thigh [M25.559]INVALID FOR*Visit Notes:>> Emanuel Taylor [facility] Jan 27, 2017 8:16 AM Status: FamiliaShania Baker presents in office today for: Lab Draw only.Ordering Provider: Alivia Wong CNM and Janay Garcia.Labs ordered as follows - HCG Quantitative, TSH, T4 Free/free thyroxMethod for obtaining blood: Phlebotomy was performed, accessing rightantecubital vein.Blood was obtained using a 21g x 3/4 inch butterfly needle.2 light green tubes were drawn. Both tubes have printed labels from [employer]. Patient verified the information is correct.Needle removed intact. Dressing secured.Patient denies discomfort, dizziness, light-headedness or weakness andleft the department without assist.Emanuel Taylro01/27/2017 08:15:48Encounter Number: [id number] Status:Closed by EMANUEL TAYLOR CMA on 01/27/17 [facility] PROGRESSon 01-27-2017 PROGRESS HNO ID: [id number] thor: Emanuel [facility]oryK[facility] CenterMary Guerra: (none)Author Type: Medical AssistantType: Progress NotesFiled: 01/27/2017 8:19 AMNote Text:Shania Baker presents in office today for: Lab Draw only.Ordering Provider: Alivia Wong CNM and Janay Garcia.Labs ordered as follows - HCG Quantitative, TSH, T4 Free/free thyroxMethod for obtaining blood: Phlebotomy was performed, accessing rightantecubital vein.Blood was obtained using a 21g x 3/4 inch butterfly needle.2 light green tubes were drawn. Both tubes have printed labels from [employer]. Patient verified the information is correct.Needle removed intact. Dressing secured.Patient denies discomfort, dizziness, light-headedness or weakness andleft the department without assist.[facility]) [id number]/27/2017 08:15:48 Normal [facility] CNOVon 01-25-2017 CNOV Office Visit (AGOBPOB) WARD TAVERASHANIA ([id number]) 1990 F CHTDate Time Provider Department01/25/17 11:45 AM ALIVIA SCHWAB ([place]) AGOBPOB During your visit today, we recorded the following information about you: Blood pressure Weight Height Last Period 128/80 58.5 kg 1.651 m 12/09/16Alivia Grewal CNM 01/25/2017 12:05 PM Signed?Bleeding in Early PregnancyMany women experience bleeding in the first trimester. This can bepart of the normal process of establishing the , commonly calledANDquot;implantation bleedingANDquot; or can occur if there is a collection ofblood in the uterus (your doctor may refer to this as a subchorionic hemorrhageor subchorionic hematoma). Bleeding can also happen due to infection in thevagina or benign overgrowths on the cervix called polyps. Most of thesesituations will go on to be normal pregnancies.Bleeding can also occur with a miscarriage or an ectopic (pregnancyoutside of the uterus, most commonly in the fallopian tube). In order to tellif the is normal or not, your doctor may order lab tests or anultrasound.Blood work is usually done to check your HCG level, which is the pregnancyhormone. HCG increases in a predictable pattern in early . If thelevel is decreasing it means the has stopped developing. Your doctorwill also order a blood type test if your blood type is unknown. If your bloodtype is negative you will receive an injection of Rhogam to preventsensitization for future pregnancies.An ultrasound may be ordered to see if the is in the correct locationor to check if the fetus has a heartbeat. Whether an ultrasound will be helpfulor not depends on how far along you are in the .If you are diagnosed with a miscarriage (also called a spontaneous ),there are several options for treatment. You may choose to wait and see if yourbody will pass the on its own, which is similar to a heavy periodwith cramping. Misoprostol is a medication that can help speed up the processand is given either in the vagina or by mouth. Surgical management formiscarriage is called a DANDamp;C and involves your doctor emptying out theuterus with suction. This is done under sedation in the operating room.If at any time you experience heavy vaginal bleeding (soaking through a pad inan hour or less), severe abdominal pain, lightheadedness or shortness of breathyou need to call your doctor immediately or go the the emergency room.? We understand this is a difficult time for you and your family and will doour best to answer all of your questions and concerns.Please call the officebefore going to the hospital.? If you are , go [facility] the [facility] at the [facility]. [facility] not [facility] ([facility], [facility]artik or [place]ordi).? If you need to go to an ER and cannot or will not go downtown, please use oneof [facility]?s ER?s (not [place], [place] or [place]).Alivia Grewal CNM 01/25/2017 12:09 PM SignedHere today for quant for verification of pregnancyUnplanned accepted pregnancyFOB involvedFirst trimester risks and warning signs reviewed.Will call with results and schedule accordingly. Face to face time was 20 minutes.Discussed vitamins ORDEREDNausea and Vomiting NONEWarning SignsOrientation to PracticeLinda Luther Hernandez As of Date: 01/25/2017(No Known Allergies)Date Reviewed: 01/25/2017Reviewed by: Paola Brar - Fully AssessedPrimary Visit Diagnosis:Absence of menstruation [N91.2]Order(s):omega-3 fatty xlihm-tyr-pph ([facility]) 312-250-18 mg capTake 1 tablet by mouth once daily.Disp: 90 tabletRfl: 0 HCG QUANTITATIVE [SQHCGQT] Order #: [id number] FUTUREPrescriptions as of 01/25/2017 Sig: LEVOTHYROXINE 50 MCG TABLET Take 1 tablet by mouth once d* OMEGA-3 FATTY ACIDS 312 MG-DH* Take 1 tablet by mouth once d* LEVONORGESTREL 0.15 MG-ETHINY* Take 1 tablet by mouth once d* NAPROXEN 500 MG TABLET Take 1 tablet by mouth twice *Medication notes this encounter LEVONORGESTREL 0.15 MG-ETHINYL ESTRADIOL 0.03 MG TABLET >> Paola Brar CMA 01/25/2017 11:48 AM >> PAOLA BRAR CMA Jan 25, 2017 11:48 AM Not taking NAPROXEN 500 MG TABLET >> Paola Brar CMA 01/25/2017 11:49 AM >> PAOLA BRAR CMA Jan 25, 2017 11:49 AM Not takingProblem List As Of Date 01/25/2017 Noted Resolved IT band syndrome [M76.30] INVALID FOR* Pain in joint, pelvic region and thigh [M25.559]INVALID FOR* Other instructions from your clinician: ? Bleeding in Early Many women experience bleeding in the first trimester. This can be part of the normal process of establishing the , commonly called implantation bleeding or can occur if there is a collection of blood in the uterus (your doctor may refer to this as a subchorionic hemorrhage or subchorionic hematoma). Bleeding can also happen due to infection in the vagina or benign overgrowths on the cervix called polyps. Most of these situations will go on to be normal pregnancies. Bleeding can also occur with a miscarriage or an ectopic ( outside of the uterus, most commonly in the fallopian tube). In order to tell if the is normal or not, your doctor may order lab tests or an ultrasound. Blood work is usually done to check your HCG level, which is the hormone. HCG increases in a predictable pattern in early . If the level is decreasing it means the has stopped developing. Your doctor will also order a blood type test if your blood type is unknown. If your blood type is negative you will receive an injection of Rhogam to prevent sensitization for future pregnancies. An ultrasound may be ordered to see if the is in the correct location or to check if the fetus has a heartbeat. Whether an ultrasound will be helpful or not depends on how far along you are in the . If you are diagnosed with a miscarriage (also called a spontaneous ), there are several options for treatment. You may choose to wait and see if your body will pass the on its own, which is similar to a heavy period with cramping. Misoprostol is a medication that can help speed up the process and is given either in the vagina or by mouth. Surgical management for miscarriage is called a DANDC and involves your doctor emptying out the uterus with suction. This is done under sedation in the operating room. If at any time you experience heavy vaginal bleeding (soaking through a pad in an hour or less), severe abdominal pain, lightheadedness or shortness of breath you need to call your doctor immediately or go the the emergency room. ? We understand this is a difficult time for you and your family and will do our best to answer all of your questions and concerns.Please call the office before going to the hospital. ? If you are , go to the ER at the hospital main campus. Do not go to the outlying ER?s (Kartik Valenzuela or Jordi). ? If you need to go to an ER and cannot or will not go downtown, please use one of [facility]?s ER?s (not [facility], [facility] or [facility]).Prescriptions ordered this encounter Disp Refills Start End OMEGA-3 FATTY ACIDS 312 MG-DHA 250 M* 90 t* 0 01/25/2017 Route: ORAL Sig: Take 1 tablet by mouth once daily.Level of Service: NEW PATIENT VISIT LEVEL 2 [10209]Disposition: Return if symptoms worsen or fail to improve, for Blood work today.LOS history recordedFollow-up and Disposition History RecordedEncounter Number: [id number] Status:Closed by ALIVIA SCHWAB CNM on 01/25/17 [facility] HCG,Totalon 01-25-[place] [address].0 m[IU]/mL [facility] Comment on above: Result Comment: Male < or = 1Non- female 1- 3Gestational Age:0.2-1 Week 5 - 501-2 Weeks 50 - 5002-3 Weeks 100 - 20091-5 Weeks 500 - 959643-3 weeks 1000 - 667789-5 weeks 25535 - 100,0006-8 weeks 05393 - 200,0002-3 months 18037 - 100,000 Performed By: #### H CG ####[address] [address] PROGRESSon 01-25-2017 PROGRESS HNO ID: [id number] thor: Alivia Martinez (Pr) Perez Pathak: (none)Author Type: MidwifeType: Progress NotesFiled: 01/25/2017 12:09 PMNote Text:Here today for quant for verification of pregnancyUnplanned accepted pregnancyFOB involvedFirst trimester risks and warning signs reviewed.Will call with results and schedule accordingly. Face to face time was 20 minutes.Discussed vitamins ORDEREDNausea and Vomiting NONEWarning SignsOrientation to PracticeAlivia Grewal CNM [facility] Venipuncture POBon 7 Venipuncture POB COMPLETED [facility] Comment on above: Performed By: #### V ENPP ####[address] [address] Vital Signs Date Time Vital Sign Value Performing Clinician Jose alberto 11-25-2023 06:56-0400 Body height 166.4 cm Zuri Madsen APRN.CNP Work Phone: [facility] 11-25-2023 06:56-0400 Body mass index (BMI) [Ratio] 21.63 kg/m2 Zuri Tena TECHNICAL ACCOUNT REPRESENTATIVE.GRAIN THRESHER Work Phone: [facility] 11-25-2023 06:56-0400 Body weight 59.88 kg Zuri Tena TECHNICAL ACCOUNT REPRESENTATIVE.GRAIN THRESHER Work Phone: [facility] 11-25-2023 06:56-0400 Diastolic blood pressure 62 mm[Hg] Zuri Tena TECHNICAL ACCOUNT REPRESENTATIVE.GRAIN THRESHER Work Phone: [facility] 11-25-2023 06:56-0400 Systolic blood pressure 108 mm[Hg] Zuri Tena TECHNICAL ACCOUNT REPRESENTATIVE.GRAIN THRESHER Work Phone: [facility] 11-05-2022 06:50-0400 Body height 165.7 cm Zuri [place] TECHNICAL ACCOUNT REPRESENTATIVE.GRAIN THRESHER Work Phone: [facility] 11-05-2022 06:50-0400 Body weight 57.7 kg Zuri Tena TECHNICAL ACCOUNT REPRESENTATIVE.GRAIN THRESHER Work Phone: [facility] 11-05-2022 06:50-0400 Diastolic blood pressure 60 mm[Hg] Zuri [place] TECHNICAL ACCOUNT REPRESENTATIVE.GRAIN THRESHER Work Phone: [facility] 11-05-2022 06:50-0400 Systolic blood pressure 100 mm[Hg] Zuri Tena TECHNICAL ACCOUNT REPRESENTATIVE.GRAIN THRESHER Work Phone: [facility] 10-30-2021 07:37-0400 Body height 166.4 cm Char Vincent TECHNICAL ACCOUNT REPRESENTATIVE.GRAIN THRESHER Work Phone: [facility] 10-30-2021 07:37-0400 Body weight 56.43 kg Char Vincent TECHNICAL ACCOUNT REPRESENTATIVE.GRAIN THRESHER Work Phone: [facility] 10-30-2021 07:37-0400 Diastolic blood pressure 60 mm[Hg] Char Vincent TECHNICAL ACCOUNT REPRESENTATIVE.GRAIN THRESHER Work Phone: [facility] 10-30-2021 07:37-0400 Systolic blood pressure 98 mm[Hg] Char Vincent TECHNICAL ACCOUNT REPRESENTATIVE.GRAIN THRESHER Work Phone: [facility] Encounters Encounter Date Encounter Type Care Provider Facility Start: 01-08-2025 ambulatory Jorge Jaimesalison Garcia lity:[facility] Start: 12-05-2024 End: 12-05-2024 ambulatory [facility] Start: 12-05-2024 Encounter for gynecological examination (general) (routine) without abnormal findings [facility] Start: 12-05-2024 ambulatory Jorge Mckeoncora lity:[facility] Start: 12-04-2024 End: 12-05-2024 ambulatory DELIA HARRINGTON Facility:[facility] Start: 05-28-2024 End: 05-28-2024 ambulatory DELIA HARRINGTON Facility:[facility] Start: 11-25-2023 End: 11-25-2023 Patient encounter procedure Zuri Madsen APRN.CNP Work Phone: OB/Gynecology Comment on above: Encounter for gyneco logical examination (general) (routine) without abnormal findings (Primary Dx); Surveillance for control, oral contraceptives Start: 11-25-2023 End: 11-25-2023 Patient encounter status Zuri Madsen APRN.MICKEY Work Phone: [facility] Start: 11-05-2022 End: 11-05-2022 Patient encounter procedure Zuri Madsen APRN.MICKEY Work Phone: OB/Gynecology Comment on above: Encounter for gyneco logical examination (general) (routine) without abnormal findings (Primary Dx); Surveillance for control, oral contraceptives; Screening for cervical cancer; Encounter for screening for human papillomavirus (HPV) Start: 11-05-2022 End: 11-05-2022 Patient encounter status Zuri Madsen APRN.CNP Work Phone: OB/Gynecology Start: 10-26-2022 ambulatory Delia Harrington PA-C Work Phone: [facility] [place] Start: 02-04-2022 ambulatory Char COLE RN.MICKEY Work Phone: OB/Gynecology Comment on above: control Start: 10-30-2021 End: 10-30-2021 Patient encounter procedure Char Vincent APRN.CNP Work Phone: OB/Gynecology Comment on above: Encounter for gyneco logical examination (general) (routine) without abnormal findings (Primary Dx); Surveillance for control, oral contraceptives Start: 10-30-2021 End: 10-30-2021 Patient encounter status Char Vincent APRN.CNP Work Phone: OB/Gynecology Start: 07-25-2020 Patient encounter procedure Aura Spain TECHNICAL ACCOUNT REPRESENTATIVE-GRAIN THRESHER [facility] [place] Work Phone: Start: 05-31-2019 Patient encounter procedure Aura Spain TECHNICAL ACCOUNT REPRESENTATIVE-GRAIN THRESHER [facility] [place] Work Phone: Start: 04-26-2019 Patient encounter procedure Aura Spain APRN-GRAIN THRESHER [facility] [place] Work Phone: Start: 09-01-2017 End: 09-04-2017 Evaluation and management of inpatient [facility] Start: 07-26-2017 End: 07-27-2017 Ambulatory IMCA Facility:[facility] Start: 06-22-2017 End: 06-23-2017 Ambulatory CLAUS STEWART Facility:[facility] Start: 01-27-2017 End: 01-28-2017 Ambulatory IMCA Facility:[facility] Start: 01-27-2017 End: 01-28-2017 Ambulatory KASSANDRA COATES JR Facility:[facility] Start: 01-25-2017 End: 01-26-2017 Ambulatory ALIVIA GREWAL Facility:[facility] Patient encounter procedure Aura Spain JUAN-GRAIN THRESHER [employer] [place] Work Phone: Procedures Date Procedure Procedure Detail Performing Clinician Start: 11-04-2020 Adult depression scr eening assessment Char Vincent APRN.CNP Work Phone: Tonsillectomy and adenoidectomy Aura Julianna DEAN Plan of Treatment Date Care Activity Detail Author Start: 07-18-2029 Urine microalbumin profile DTaP,Tdap,Td Vaccine (4 - Td or Tdap) [facility] Start: 01-05-2029 Urine microalbumin profile DTAP,TDAP,TD (3 - Td or Tdap) [facility] Start: 11-06-2027 Screening for malign ant neoplasm of cervix [facility] Start: 07-25-2025 HPV TESTING HPV TESTING [facility] Start: 11-30-2024 End: 11-30-2024 Patient encounter procedure 11/30/2024 7:00 AM EDT Office Visit OB/Gynecology [address] [place] [address] Zuri Madsen APRN.GRAIN THRESHER [address] [place] [address] annual OB/Gynecology Comment on above: annual Start: 07-18-2023 Behavioral Health Screening Behavioral Health Screening [facility] Start: 03-18-2023 Covid-19 Vaccine () Covid-19 Vaccine () [facility] Start: 03-18-2023 Influenza vaccination INFLUENZA (Sea son Ended) [facility] Start: 10-26-2022 End: 12-26-2022 Thyrotropin [Units/volume] in Serum or Plasma TSH BLD Lab Routine Hypothyroidism Expected: 10/26/2022, Expires: 12/26/2022 [facility] Work Phone: Comment on above: Expected: 10/26/2022 , Expires: 12/26/2022 Start: 07-18-2022 DEPRESSION ASSESSMENT DEPRESSION ASS ESSMENT [facility] Start: 03-18-2022 Influenza vaccination [facility] Start: 02-09-2022 PAP TESTING PAP TESTING [facility] Start: 11-05-2021 ANNUAL PCP TEAM SUPERINTENDENT CONTAINER TERMINAL SHILPA DISEASE VISIT ANNUAL PCP TEAM CHRONIC DISEASE VISIT [facility] Start: 11-05-2021 HEPATITIS C SCREENING HEPATITIS C [facility] Comment on above: Postponed from 12/23 (Declined at this time) Start: 11-04-2021 Adult depression screening assessment DEPRESSION SCREENING [facility] Start: 02-10-2021 COVID-19 VACCINE (4 - Booster for Pfizer series) COVID-19 VACCINE (4 - Booster for Pfizer series) [facility] Start: 12-24-2007 HEPATITIS C SCREENING HEPATITIS C [facility] Start: 12-24-2007 Hepatitis C screening Hepatitis C [facility] PAP TEST PAP TEST Lab [place] quintana Encounter for gynecological examination (general) (routine) without abnormal findings Screening for cervical cancer Encounter for screening for human papillomavirus (HPV) Ordered: 11/05/2022 [facility] Work Phone: Comment on above: Ordered: 11/05/2022 [facility] Immunizations Immunization Date Immunization Notes Care Provider Lay choi 01-05-2019 tetanus toxoid, redu wendy diphtheria toxoid, and acellular pertussis vaccine, adsorbed Char Vincent TECHNICAL ACCOUNT REPRESENTATIVE.[facility] Work Phone: [facility] Work Phone: 09-04-2017 RHO(D) immune globul in- IV or IM Char Vincent TECHNICAL ACCOUNT REPRESENTATIVE.[facility] Work Phone: [facility] 06-24-2017 tetanus toxoid, redu wendy diphtheria toxoid, and acellular pertussis vaccine, adsorbed Char Vincent TECHNICAL ACCOUNT REPRESENTATIVE.[facility] Work Phone: [facility] 04-26-2017 influenza virus vaccine, unspecified formulation Char Loredohrie TECHNICAL ACCOUNT REPRESENTATIVE.[facility] Work Phone: [facility] 04-12-2016 influenza virus vaccine, unspecified formulation Char Loredohrie TECHNICAL ACCOUNT REPRESENTATIVE.GRAIN THRESHER Work Phone: [facility] 04-17-2015 influenza virus vaccine, unspecified formulation hCar Vincent TECHNICAL ACCOUNT REPRESENTATIVE.[facility] Work Phone: [facility] 04-26-2014 influenza, seasonal, injectable Char Vincent TECHNICAL ACCOUNT REPRESENTATIVE.GRAIN THRESHER Work Phone: [facility] Work Phone: 05-12-2012 measles, mumps and rubella virus vaccine Char Vincent TECHNICAL ACCOUNT REPRESENTATIVE.GRA[employer]HER Work Phone: [facility] 10-29-2011 measles, mumps and rubella virus vaccine Char Vincent TECHNICAL ACCOUNT REPRESENTATIVE.GRAIN TH[employer]HER Work Phone: [facility] Payers Date Payer Category Payer Self-pay 2020 Private Health Insurance [facility]ET[facility]UL[employer]ET [facility] [employer] [id number] 2020-Present [phone] [address] [place] [address] PPO [id number] 2020 Private Health Insurance AEKETAN [facility] [id number] 2020-Present [phone] [address] [place] [address] PPO [id number] 2020 Private Health Insurance [id number] 1990 Unknown [id number] Unknown [id number] Unknown [id number] Unknown [id number] Unknown [id number] Social History Date Type Detail Facility Start: 09-30-2011 End: 11-05-2022 Tobacco smoking status IDIS Never smoked tobacco [facility] Start: 09-30-2011 End: 11-05-2022 Tobacco use and exposure Smokeless tobacco non-user [facility] Start: 10-30-2021 End: 11-25-2023 Alcohol intake Current non-drinker of alcohol (finding) [facility] Start: 11-05-2020 History SDOH Alcohol Frequency 2 [facility] Start: 11-05-2020 History SDOH Alcohol Std Drinks 1 [facility] Start: 11-05-2020 History SDOH Social Connections Phone 5 [facility] Start: 11-05-2020 History SDOH Social Connections Living 3 [facility] Start: 11-04-2020 Education 17 [facility] Start: 1990 Sex Assigned At Not on file [facility] Start: 10-16-2021 End: 10-26-2021 Exposure to SARS-CoV-2 (event) Not sure [facility] Work Phone: Start: 11-04-2020 End: 11-25-2023 History of Social function [facility] Start: 11-04-2020 End: 11-25-2023 Social connection and isolation panel [facility] Do you belong to any clubs or organizations such as jewish groups, unions, fraternal or athletic groups, or school groups? No [facility] Are you now , , , , never or living with a partner? [facility] How often to you hav e a drink containing alcohol? Monthly or less [facility] How many standard dr inks containing alcohol do you have on a typical day? 1 or 2 [facility] How often do you hav e 6 or more drinks on 1 occasion? Never [facility] How hard is it for y ou to pay for the very basics like food, housing, medical care, and heating Not hard at all [facility] Do you feel stress - tense, restless, nervous, or anxious, or unable to sleep at night because your mind is troubled all the time - these days [OSQ] Only a little [facility] (I/We) worried wheth er (my/our) food would run out before (I/we) got money to buy more. Never true [facility] NEGATED: Highlighted row - - [facility] Work Phone: Functional Status Date Assessment Result Facility NEGATED: Highlighted row Functional performance Functional status health issues are not documented [facility] Work Phone: Mental Status Date Assessment Result Facility NEGATED: Highlighted row Cognitive function [Interpretation] Cognitive status health issues are not documented [facility] Work Phone: Clinical Notes 09-01-2017 to 11-25-2023 Zuri Madsen APRN.GRAIN THRESHER - 11/25/2023 6:54 AM EDTRenelarry Madsen APRN.GRAIN THRESHER - 11/05/2022 6:50 AM EDTTelephone Encounter - Char Vincent APRN.CNP - 02/05/2022 2:37 PM EDTPatient Instructions Note Date & Type Note Facility 11-25-2023 History of Presen t illness Narrative Aoc Director Combat Plans Officer offered: Patient declines. Shania is a 32 year old who presents for an annual gynecologic exam without complaints. Menses: cycles every 21-24 days and 2-5 days of flow. Contraception: combined hormonal contraceptives HPV vaccine: Yes Last Pap: 11/15/2022 normal HPV: 11/10/2022 negative History of abnormal pap: No Last mammogram: never Sexually active: Yes Pain with intercourse: No Postcoital bleeding: No OB History T2 L2 SAB0 IAB0 Ectopic0 Multiple0 Live Births1 Technical Rep History LMP: 11/08/2023, Having periods Age at Menarche: Age at First : Age at Menopause: Technical Rep History Comments: Sexual Activity: Yes; Male Contraception: Pill PAST MEDICAL HISTORY Diagnosis Date Gestational hypertension 09/01/2017 Hypothyroidism Syncope 2010 negative workup (tilt test, cardiac) PAST SURGICAL HISTORY Procedure Laterality Date ADENOIDECTOMY PRIMARY <AGE 12 FAMILY HISTORY Problem Relation Age of Onset Lipids Mother Hypertension Mother No Ocular Disease Mother other (mogads) Mother autoimmune Lipids Father No Ocular Disease Father No Known Problems Sister No Known Problems Brother Heart Maternal Grandmother Thyroid Maternal Grandmother Rheumatologic disease Maternal Grandmother Heart Maternal Grandfather DVT Maternal Grandfather Cataract Paternal Grandmother Cataract Paternal Grandfather Coronary Artery Disease Paternal Grandfather CABG SOCIAL HISTORY Social History Tobacco Use Smoking status: Never Smokeless tobacco: Never Vaping Use Vaping Use: Never used Substance Use Topics Alcohol use: No Drug use: No REVIEW OF SYSTEMS Abdomen: No abdominal pain, nausea, vomiting, diarrhea, or constipation. No bloating, early satiety, indigestion, or increased flatulence. Bladder: No dysuria, gross hematuria, urinary frequency, urinary urgency, or incontinence. Breast: No breast lumps, nipple d/c, overlying skin changes, redness or skin retraction. Allergies and current medication updated:Yes EXAM: BP 108/62 Ht 5' 5.5 (1.66m) Wt 132 lb (59.9kg) LMP 11/08/2023 BMI 21.62 kg/(m^2). GENERAL: pleasant, female in no apparent distress HEENT: Normocephalic, atraumatic, mucus membranes moist, and no lesions NECK: Supple, full range of motion, no adenopathy, and thyroid normal DERMATOLOGY: Normal, without lesions, non-icteric, and non-hirsute BREAST: soft, non-tender, symmetric, no dominant mass, normal nipple-areolar complex, no lymphadenopathy, and no nipple discharge CHEST: Normal inspiratory effort ABDOMEN: soft, non-tender, and no masses PELVIC: external genitalia normal, normal Bartholin's glands, urethra, Kensett's glands, no vulvar lesions, no cervical lesions, good vaginal support, physiologic discharge present, normal appearing perineal body and perianal region BIMANUAL: uterus normal size, shape and consistency, no adnexal masses, and non-tender RECTOVAGINAL: deferred. NEURO: alert and oriented x3,exam grossly non-focal EXTREMITIES: normal ASSESSMENT/PLAN: 1) Health maintenance: Pap/HPV up to date. Mammogram starting age 40. Nutrition, exercise and routine health maintenance exams reviewed. Calcium/Vitamin D supplementation information provided. 2) Contraception: combined hormonal contraceptives. Contraceptive options reviewed and information provided. 3) STD screening: Declined STD check. 4) Follow up one year or sooner as needed Zuri Madsen APRN.GRAIN THRESHER documented in this encounter [facility] 11-05-2022 History of Presen t illness Narrative Shania is a 31 year old who presents for an annual gynecologic exam without complaints. Menses: cycles every 21-24 days and 2-5 days of flow. Contraception: combined hormonal contraceptives HPV vaccine: Yes Last Pap: 07/25/2020 [facility] HPV: N/A History of abnormal pap: No Last mammogram: never Sexually active: Yes Pain with intercourse: No Postcoital bleeding: No OB History T2 L2 SAB0 IAB0 Ectopic0 Multiple0 Live Births1 Technical Rep History LMP: 10/31/2022, Having periods Age at Menarche: Age at First : Age at Menopause: Technical Rep History Comments: Sexual Activity: Yes; Male Contraception: Pill PAST MEDICAL HISTORY Diagnosis Date Gestational hypertension 09/01/2017 Hypothyroidism Syncope 2010 negative workup (tilt test, cardiac) PAST SURGICAL HISTORY Procedure Laterality Date ADENOIDECTOMY PRIMARY <AGE 12 FAMILY HISTORY Problem Relation Age of Onset Lipids Mother Hypertension Mother No Ocular Disease Mother other (mogads) Mother autoimmune Lipids Father No Ocular Disease Father No Known Problems Sister No Known Problems Brother Heart Maternal Grandmother Thyroid Maternal Grandmother Rheumatologic disease Maternal Grandmother Heart Maternal Grandfather DVT Maternal Grandfather Cataract Paternal Grandmother Cataract Paternal Grandfather Coronary Artery Disease Paternal Grandfather CABG SOCIAL HISTORY Social History Tobacco Use Smoking status: Never Smokeless tobacco: Never Vaping Use Vaping Use: Never used Substance Use Topics Alcohol use: No Drug use: No REVIEW OF SYSTEMS Abdomen: No abdominal pain, nausea, vomiting, diarrhea, or constipation. No bloating, early satiety, indigestion, or increased flatulence. Bladder: No dysuria, gross hematuria, urinary frequency, urinary urgency, or incontinence. Breast: No breast lumps, nipple d/c, overlying skin changes, redness or skin retraction. Allergies and current medication updated:Yes EXAM: Ht 5' 5.25 (1.66m) Wt 127 lb 3.2 oz (57.7kg) LMP 10/31/2022 BMI 21.01 kg/(m^2). GENERAL: pleasant, female in no apparent distress HEENT: Normocephalic, atraumatic, and no lesions NECK: Supple, full range of motion, no adenopathy, and thyroid normal DERMATOLOGY: Normal, without lesions, non-icteric, and non-hirsute BREAST: soft, non-tender, symmetric, no dominant mass, normal nipple-areolar complex, no lymphadenopathy, and no nipple discharge CHEST: Normal inspiratory effort ABDOMEN: soft, non-tender, and no masses PELVIC: external genitalia normal, normal Bartholin's glands, urethra, Kensett's glands, no vulvar lesions, no cervical lesions, good vaginal support, physiologic discharge present, normal appearing perineal body and perianal region BIMANUAL: uterus normal size, shape and consistency, no adnexal masses, and non-tender RECTOVAGINAL: deferred. NEURO: alert and oriented x3,exam grossly non-focal EXTREMITIES: normal ASSESSMENT/PLAN: 1) Health maintenance: Pap done with HPV. Mammogram starting age 40. Nutrition, exercise and routine health maintenance exams reviewed. Calcium/Vitamin D supplementation information provided. 2) Contraception: combined hormonal contraceptives. Contraceptive options reviewed and information provided. 3) STD screening: Declined STD check. 4) Follow up one year or sooner as needed Zuri Madsen APRN.CNP documented in this encounter [facility] 02-05-2022 Miscellaneous Notes See phone note. Char Vincent APRN.CNP documented in this encounter [facility] 10-30-2021 Instructions Char Vincent APRN.CNP - 10/30/2021 8:05 AM EDT Oral Contraceptives: The Pill Beginning the Pill Pills come in either a 21 day pack or a 28 day pack. With the 21 day pack you will take one pill for 21 days then no pill for 7 days, during which time you will have what is known as withdrawal bleeding. The 28 day pack allows you to take a pill every day of the cycle with no interruptions. The first 21 pills are the pills with the active ingredients and the last 7 are the nonmedical pills (placebo) or they may contain iron. There will be bleeding during the week you are taking the nonmedical pills. The advantage to the 28 day pack is that you don t have to keep track of when you stopped the pill. There are a group of 28 day pills that contain 24 active pills and only 4 placebo pills. These are formulated to give you a certified pesticide applicator period. Unless otherwise instructed, you should start your pills the Tuesday following your first day of bleeding with your next period (if your period starts on a Tuesday, you should start pills the same day) Read your information packet that comes with the pills. Pill Benefits The pill is the most popular method of reversible control being used today. Millions of women rely on oral contraceptives as their control method. It is important to have an examination by your physician to determine if the pill is safe for you. There are several advantages associated with the pill: it is 97-98% effective when used correctly; may improve acne; periods are more regular and less painful; there is less iron deficiency anemia in pill users. medical terminologist use is associated with a decreased incidence of ovarian and uterine cancer. There is also no evidence that the pill increases the incidence of any cancer. How Oral Contraceptives Work Oral contraceptives come in two varieties. One is the combination pill which contains both estrogen and progesterone. Combination pills are considered 98-99% effective in preventing . This pill comes in either monophasic, which delivers the same amount of estrogen and progesterone throughout the cycle; and triphasic, which try tries to mimic the normal hormone cycle by changing the levels of the hormones in the pills during the month. There is no real advantage to taking the one over the other. The other type of pill only contains progesterone. It is best used for women who can t take estrogen. This type of pill is slightly less effective than the combination pill in preventing . It is VERY important to take the progesterone only pill at the same time every day. Oral contraceptives prevent ovulation (release of an egg from the ovary) by suppressing the pituitary gland s action. The pill does NOT prevent sexually transmitted disease. Obtaining a Prescription It is important to see your doctor before starting oral contraceptives so that you can have a full medical history taken and a physical examination given. Certain medical conditions may make the pill inappropriate for you, therefore it is very important to be honest and as complete as possible with the information you share with your doctor. The types of predisposing factors which would make the pill a poor choice of control would include: History of blood clots Stroke Serious liver disease or impaired liver function Unexplained vaginal bleeding or Cancer of the reproductive system Active gall bladder disease Hypertension Possible Side Effects It can take up to three months for your body to become adjusted to the pill. The more common side effects experienced at this time are: breakthrough spotting or bleeding, which is bleeding at any other time other than when you should be having a period; nausea or vomiting; breast tenderness; and mild fluid retention. There is no mcfp weight gain with the use of the pill. Breakthrough bleeding is the most common complaint of new pill users. There is no way to predict who will have it and there is no way of preventing it. Breakthrough bleeding usually subsides on its own with no further treatment after the first three months of taking the pill. If these symptoms continue to occur after the first three months you should check with your physician to see if there is any physical cause and possibly change to another control pill. Problems: 1. Missed 1 pill: Take 2 pills the next day. 2. Missed 2 pills: Take 2 pills the next day and 2 pills the following day. Also use another form of control (condoms) along with the pill for the rest of the month. 3. Missed 3 or more pills: You have two choices. You can take two pills each day until you are on schedule, plus use an additional form of control along with the pill for the rest of the month. Or you can stop the pill and start a completely new pack of pills the next Tuesday. You must use another form of control with the pill for at least the first two weeks of the new pack. 4. You re ill and you have been vomiting or have diarrhea: You must use another form of control with the pill since the pill may not be fully absorbed during your illness. Continue to use the added control until the end of the cycle. 5. Desire to become : Stop using the pill for one month before trying to become . 6. Taking other medications: The control pill is less effective when you take the antibiotic Rifampin, epilepsy (seizure) drugs such as phenytoin, carbamazepine, phenobarbital, topiramate and some medications for HIV. Let your doctor know if you start taking any of these medications while on the pill. Symptoms to Notify Your Doctor with Immediately: 1. Pain in your chest or legs 2. Continuous blurred vision 3. Severe headaches 4. Slurred speech 5. Tingling or weakness on one side of your body 6. Shortness of breath 7. Swelling of one leg Refills of Control Pills You need to see a doctor every year for a refill of your prescription. This is necessary in order that your health can be monitored closely while you are taking control pills. If your prescription should before your next scheduled appointment you can usually get a one month extension from your doctors office if you call during regular business hours about one week before you need to start the new package of pills. This allows the physician to refer to your chart for necessary health information. rudence documented in this encounter [facility] 10-30-2021 History of Presen t illness Narrative Shania is a 30 year old who presents for an annual gynecologic exam without complaints. Menses: cycles every 30-35 days and 7 days of flow. Since last , heavy for the first few days then tapers off. Contraception: Progestin - only contraceptives due to . 1 yo almost weaned. HPV vaccine: Yes Last Pap:07/25/2020 [facility] HPV: negative History of abnormal pap: No Last mammogram: never Sexually active: Yes History of STDS: None Patient concerns for STD exposure: No. Time with current partner: 7 years Pain with SI: None Bleeding with SI: none OB History T2 L2 SAB0 IAB0 Ectopic0 Multiple0 Live Births1 Technical Rep History LMP: 10/17/2021, Having periods Age at Menarche: Age at First : Age at Menopause: Technical Rep History Comments: Sexual Activity: Yes; Male Contraception: Pill PAST MEDICAL HISTORY Diagnosis Date Gestational hypertension 09/01/2017 Hypothyroidism Syncope 2010 negative workup (tilt test, cardiac) PAST SURGICAL HISTORY Procedure Laterality Date ADENOIDECTOMY PRIMARY <AGE 12 FAMILY HISTORY Problem Relation Age of Onset Lipids Mother Hypertension Mother No Ocular Disease Mother other (mogads) Mother Lipids Father No Ocular Disease Father No Known Problems Sister No Known Problems Brother Heart Maternal Grandmother Thyroid Maternal Grandmother Heart Maternal Grandfather DVT Maternal Grandfather Cataract Paternal Grandmother Cataract Paternal Grandfather Coronary Artery Disease Paternal Grandfather CABG SOCIAL HISTORY Social History Tobacco Use Smoking status: Never Smoker Smokeless tobacco: Never Used Vaping Use Vaping Use: Never used Substance Use Topics Alcohol use: No Drug use: No REVIEW OF SYSTEMS Abdomen: No abdominal pain, nausea, vomiting, diarrhea, or constipation. No bloating, early satiety, indigestion, or increased flatulence. Bladder: No dysuria, gross hematuria, urinary frequency, urinary urgency, or incontinence. Breast: No breast lumps, nipple d/c, overlying skin changes, redness or skin retraction. Denies family history of clotting disorders. Denies personal history of DVT, CVD, hypertension or migraine with aura. Nonsmoker. Allergies and current medication updated:Yes EXAM: BP 98/60 Ht 5' 5.5 (1.66m) Wt 124 lb 6.4 oz (56.4kg) LMP 10/17/2021 BMI 20.38 kg/(m^2). GENERAL: pleasant, female in no apparent distress HEENT: Normocephalic, atraumatic, mucus membranes moist and no lesions NECK: Supple, full range of motion, no adenopathy and thyroid normal DERMATOLOGY: Normal, without lesions, non-icteric and non-hirsute BREAST: soft, non-tender, symmetric, no dominant mass, normal nipple-areolar complex, no lymphadenopathy and no nipple discharge CHEST: Normal inspiratory effort ABDOMEN: soft, non-tender and no masses PELVIC: external genitalia normal, normal Bartholin's glands, urethra, Kensett's glands, no vulvar lesions, no cervical lesions, good vaginal support, physiologic discharge present, normal appearing perineal body and perianal region BIMANUAL: uterus normal size, shape and consistency, no adnexal masses and non-tender RECTOVAGINAL: deferred. NEURO: alert and oriented x3,exam grossly non-focal EXTREMITIES: normal Thelma Gonzales APRN Student TEACHING PROVIDER (Physician/PA/TECHNICAL ACCOUNT REPRESENTATIVE) NOTE OF PERSONAL INVOLVEMENT IN CARE: I have personally seen and examined the patient and performed the medical decision-making components. I have reviewed the Advanced Practice Registered Nurse (TECHNICAL ACCOUNT REPRESENTATIVE) Student's documentation and verified the findings in the note as written. Any additions or changes are noted in bold/italics. Signature: Char Vincent Date: 10/30/2021 Time: 8:06 AM ASSESSMENT/PLAN: 1) Health maintenance: Pap/HPV up to date. 2) Contraception: Progestin - only contraceptives. Contraceptive options reviewed and information provided. Order placed for combined OCP. 3) STD screening: Declined STD check. 4) Follow up one year or sooner as needed Char Vincent APRN.GRAIN THRESHER documented in this encounter [facility] 09-01-2017 History of Past i llness Narrative Problem Noted Date Resolved Date Gestational hypertension 09/01/2017 021 Hypothyroid in , antepartum 08/24/2017 02/15/2018 Contraceptive management 07/27/2017 018 Overview: Declines PP LARC Rh negative state in antepartum period 7 09/04/2017 documented as of this encounter (statuses as of 10/30/2021) [facility] History of Past illness Narrative* Problem Noted Date Resolved Date Gestational hypertension 09/01/2017 021 Hypothyroid in , antepartum 08/24/2017 02/15/2018 Contraceptive management 07/27/2017 018 Overview: Declines PP LARC Rh negative state in antepartum period 7 09/04/2017 documented as of this encounter (statuses as of 02/05/2022) [facility] History of Past illness Narrative* Problem Noted Date Resolved Date Gestational hypertension 09/01/2017 021 Hypothyroid in , antepartum 08/24/2017 02/15/2018 Contraceptive management 07/27/2017 018 Overview: Declines PP LARC Rh negative state in antepartum period 7 09/04/2017 documented as of this encounter (statuses as of 10/29/2022) [facility] History of Past illness Narrative* Problem Noted Date Resolved Date Gestational hypertension 09/01/2017 021 Hypothyroid in , antepartum 08/24/2017 02/15/2018 Contraceptive management 07/27/2017 018 Overview: Declines PP LARC Rh negative state in antepartum period 7 09/04/2017 documented as of this encounter (statuses as of 11/05/2022) [facility] Diagnosis Encounter for gynecological examination (general) (routine) without abnormal findings- Primary Surveillance for control, oral contraceptives Surveillance of previously prescribed contraceptive pill [facility] Diagnosis Hypothyroidism Unspecified hypothyroidism [facility] Diagnosis Encounter for gynecological examination (general) (routine) without abnormal findings- Primary Surveillance for control, oral contraceptives Surveillance of previously prescribed contraceptive pill Screening for cervical cancer Screening for malignant neoplasm of the cervix Encounter for screening for human papillomavirus (HPV) Special screening examination for human papillomavirus (HPV) [facility] Diagnosis Encounter for gynecological examination (general) (routine) without abnormal findings- Primary Surveillance for control, oral contraceptives Surveillance of previously prescribed contraceptive pill [facility] Name Dates Details Instructions not documented [facility] Work Phone: Summary Purpose Family History No Family History Records Found Mother Name Dates Details Family history of hypertensi on(V17.49, Z82.49) Status:Active Advance Directives No Advanced Directives Records FoundNo Advanced Directives Records FoundNo Advanced Directives Records FoundNo Advanced Directives Records FoundNo Advanced Directives Records FoundNo Advanced Directives Records FoundNo Advanced Directives Records FoundNo Advanced Directives Records FoundNo Advanced Directives Records FoundNo Advanced Directives Records FoundNo Advanced Directives Records Found Hospital Course Note REASON FOR ADMISSION: Reason for AdmissionStates 28 y/o @ 41.6 weeks gestation admitted to [facility] for post dates induction of labor. Having occasional contractions, denies LOF, VB, endorses good movement. VE /-3. Had after induction, intact perineum, healthy mom and baby ready for discharge home at 24 hours. REVIEW OF SYSTEMS: General: NEGATIVE: anorexia, chills, fever, malaise/fatigue, weight loss Skin: NEGATIVE: icterus, lesions, pruritus, rash, varicose veins Breast: NEGATIVE: breast lump, nipple discharge, nipple retraction, tenderness; Comments nursing successfully Respiratory: NEGATIVE: cough, wheezing Gastrointestinal: NEGATIVE: abdominal pain, constipation, diarrhea, nausea, vomiting Gastrorectal: NEGATIVE: change in bowel habits, stool incontinence Genitourinary: NEGATIVE: dysuria, urinary frequency, urinary hesitance, urinary incontinence Neurological: NEGATIVE: dizziness, headache Psychiatric: NEGATIVE: anxiety, depression, hallucinations, insomnia, mood (more content not included)... Additional Source Comments INFORMATION SOURCE (unrecogn ized section and content) DATE CREATED AUTHOR 01/06/2018 Alecia Frank [facility] DATE CREATED AUTHOR AUTHOR'S OR[facility]IZ ATION [facility] CREATED AUTHOR AUTHOR'S ORGANIZ ATION 01/10/2018 Alecia [facility] DATE CREATED AUTHOR AUTHOR'S ORGANIZ ATION 04/21/2019 [facility] DATE CREATED AUTHOR AUTHOR'S ORGANIZ ATION 05/31/2019 [facility] DATE CREATED AUTHOR AUTHOR'S ORGANIZ ATION 07/26/2020 [facility] DATE CREATED AUTHOR AUTHOR'S ORGANIZ ATION 08/07/2020 [facility] DATE CREATED AUTHOR AUTHOR'S ORGANIZ ATION 12/05/2024 [facility] DATE CREATED AUTHOR AUTHOR'S ORGANIZ ATION 12/13/2024 [facility] DATE CREATED AUTHOR AUTHOR'S ORGANIZ ATION 12/16/2024 [facility] DATE CREATED AUTHOR AUTHOR'S ORGANIZ ATION 01/07/2025 [facility] Source Comments (unrecognize d section and content) In the event this informatio n is protected by the Federal Confidentiality of Alcohol and Drug Abuse Patient Records regulations: The Federal rules restrict any use of the information to criminally investigate or prosecute any alcohol or drug abuse patient.[facility] the event this information is protected by the Federal Confidentiality of Alcohol and Drug Abuse Patient Records regulations: The Federal rules restrict any use of the information to criminally investigate or prosecute any alcohol or drug abuse patient.[facility] the event this information is protected by the Federal Confidentiality of Alcohol and Drug Abuse Patient Records regulations: The Federal rules restrict any use of the information to criminally investigate or prosecute any alcohol or drug abuse patient.[facility] Hospital[facility] the event this information is protected by the Federal Confidentiality of Alcohol and Drug Abuse Patient Records regulations: The Federal rules restrict any use of the information to criminally investigate or prosecute any alcohol or drug abuse patient.[facility] Hospital[facility] the event this information is protected by the Federal Confidentiality of Alcohol and Drug Abuse Patient Records regulations: The Federal rules restrict any use of the information to criminally investigate or prosecute any alcohol or drug abuse patient.[facility] Reason for Visit (unrecogniz ed section and content) Reason Comments Yearly Exam Care Teams (unrecognized sec tion and content) Data Processing Operator Relationship Specialty Start Date End Date Delia Harrington PA-C [address] [address] PCP - General Family Practice 12/24/20 Data Processing Operator Relationship Specialty Start Date End Date Delia Harrington PA-C [address] [place] [address] PCP - General Family Practice 12/24/20 Data Processing Operator Relationship Specialty Start Date End Date Delia Harrington PA-C [address] [place] [address] PCP - General Family Medicine 12/24/20 Data Processing Operator Relationship Specialty Start Date End Date Delia Harrington PA-C [address] [place] [address] PCP - General Family Medicine 12/24/20 Data Processing Operator Relationship Specialty Start Date End Date Delia Harrington PA-C [address] [place] [address] PCP - General Family Medicine 12/24/20 FOR RECORDS PERTAINING TO PATIENTS WHO ARE OR HAVE BEEN ENROLLED IN A CHEMICAL DEPENDENCY/SUBSTANCEABUSE PROGRAM, SOME INFORMATION MAY BE OMITTED. This clinical summary was aggregated from multiple sources. Caution should be exercised in using it in the provision of clinical care. This summary normalizes information from multiple sources, and as a consequence, information in this document may materially change the coding, format and clinical context of patient data. In addition, data may be omitted in some cases. CLINICAL DECISIONS SHOULD BE BASED ON THE PRIMARY CLINICAL RECORDS. [employer] provides no warranty or guarantee of the accuracy or completeness of information in this document.
--- NOTE | 2025-01-08 06:52 | CT_ITS ---
PROCEDURE: LIMITED CHEST CT CARDIAC ONLY 01/08/2025 REASON FOR EXAM: HYPERLIPIDEMIA TECHNIQUE: CT for coronary artery calcium scoring. One or more dose reduction techniques were used (e.g., Automated exposure control, adjustment of the mA and/or kV according to patient size, use of iterative reconstruction technique). RADIATION DOSE SUMMARY: CTDlvol: 12.19 mGy DLP: 195.04 mGycm COMPARISON: None. CT/Limited Chest CT Cardiac Only IMPRESSION: Limited imaging of the lungs demonstrates no acute process. No pleural effusion or pneumothorax is seen in visualized areas. No adenopathy is noted. The visualized upper abdomen demonstrates no significant abnormality. Reading Location: [place] [id number]
--- NOTE | 2025-01-08 16:38 | CA.SCORE ---
Calcium Scoring Date of Study:: 01/08/25 Indications Indications: Hyperlipidemia Coronary Calcium Scoring: High-resolution Computed Tomographic imaging of the chest was performed on [01/08/2025], with particular attention paid to the coronary arteries. Images from the examination were analyzed for the presence and extent of coronary artery calcification , using coronary calcium quantification software. The patient tolerated the procedure well and there were no complications. The results of the coronary calcification analysis are provided below. Findings Coronary Artery Left Main (LM): 0 Left Anterior Descending (LAD): 0 Left Circumflex (LCX): 0 Right Coronary Artery (RCA): 0 Total Agatston Score: 0 Percentile Rankin% Calcium Scoring Interpretation: Different methods to categorize the overall amount of coronary plaque. Overall amount CAC SIS Visual of coronary plaque P1 Mild -100 <2 1-2 vessels with mild amount of plaque P2 Moderate 101-300 3-4 1-2 vessels with moderate amount, 3 vessels with mild amount of plaque P3 Severe 301-999 5-7 3 vessels with moderate amount, 1 vessel with severe amount of plaque P4 Extensive >1000 >8 2-3 vessels with severe amount of plaque Conclusion: No atherosclerotic plaquing
== END 2025-01-08 23:59 | disposition home or self-care (01) ==
PROVIDERS: PCP Family Medicine; Referring Provider Family Medicine; Visit Provider Family Medicine
DX: E78.5 Hyperlipidemia, unspecified (principal)
CPT/HCPCS: 75571; 76380